=== PATIENT | male | born 1950 | race Caucasian/White ===

== ENCOUNTER 2017-05-03 19:55 | Inpatient (IN) ==
--- NOTE | 2017-05-03 20:02 | Emergency Department Note ---
Disposition Clinical Impression: Abdominal pain Qualifiers: Abdominal location: generalized Qualified Code(s): R10.84 - Generalized abdominal pain Disposition: Still a Patient Condition: Fair Referrals: NO,PCP [Non-Partnered Physician] - Forms: Work/School Release, ED Satisfaction Letter Time of Disposition: 22:22 Abdominal Pain HPI - General Chief Complaint: ED Abdominal Pain Stated Complaint: abd pain Time Seen by Provider: 05/03/17 19:57 Source: patient, EMS Mode of arrival: EMS Limitations: other (Psychiatric disorder) Nursing Notes Reviewed: Yes Vital Signs Reviewed: Yes - History of Present Illness HPI Narrative: 66-year-old male with history of schizophrenia at the inpatient [facility] at the [facility] with history of bowel obstruction as well, arrives to emergency emergency Department as a transfer for concern for possible small bowel obstruction. The patient was evaluated for abdominal pain earlier today with a abdominal x-ray which demonstrated dilated small bowel loops in the distal small bowel. The patient was transferred to [facility] for further evaluation and possible admission. The patient resting comfortably on the stretcher upon arrival. He is not tachycardic, afebrile, not hypotensive. The patient denies any complaints at this time other than a small amount of abdominal pain. The patient does have a history of psychiatric disorders and is minimally interactive but is able to answer some questions correctly. Onset (ago): unknown Location: diffuse Pain Severity: mild Pain Scale: 3 Quality: cramping Radiation: none Migration to: no migration Improves with: nothing Worsens with: nothing Context: history of similar episodes Treatments prior to arrival: none - Related Data Home Medications Medication Instructions Recorded Confirmed Acetaminophen [Tylenol] 650 mg PO BID PRN 01/11/16 05/11/16 CloZAPine [Fazaclo] 250 mg PO QAM 01/11/16 05/11/16 CloZAPine [Fazaclo] 300 mg PO HS 01/11/16 05/11/16 Docusate [Colace] 100 mg PO BID 01/11/16 05/11/16 Haloperidol Oral Conc [Haldol] 5 mg PO Q8HR PRN MDD tab & liquid 01/11/16 both active order Haloperidol [Haldol] 5 mg PO Q8HR PRN 01/11/16 05/11/16 LORazepam [Lorazepam] 1 mg IM Q8HR PRN 01/11/16 05/11/16 [place] Oral Soln [[place]] 8 meq PO HS 01/11/16 05/11/16 Magnesium Citrate [Citroma] 296 ml PO DAILY PRN 01/11/16 05/11/16 Ondansetron HCl [Zofran] 4 mg PO Q6HR PRN 01/11/16 05/11/16 Propranolol [Inderal] 10 mg PO BID 01/11/16 05/11/16 Oxybenzone/Padimate O [Sunscreen 1 appl TP AD PRN 05/11/16 05/11/16 Spf8 Lotion] Polyethylene Glycol 3350 [MiraLAX] 17 gm PO DAILY 05/11/16 05/11/16 Allergies Allergy/AdvReac Type Severity Reaction Status Date / Time chlorpromazine Allergy Rash Verified 11/06/15 15:30 [From Thorazine] aspirin [ASA] AdvReac Itching Verified 11/06/15 15:30 All systems ED: reviewed and negative except as stated. Constitutional: Denies: fever, chills, weakness, weight change Eyes: Denies: eye pain, eye discharge, vision change ENT ED: Denies: ear pain, throat pain, dental pain, hearing loss, epistaxis, congestion, dysphagia Cardiovascular: Denies: chest pain, palpitations, dyspnea on exertion, edema, syncope Respiratory: Denies: cough, dyspnea, wheezes, hemoptysis, stridor Gastrointestinal: Reports: abdominal pain, constipation. Denies: nausea, vomiting, diarrhea Genitourinary: Denies: urgency, dysuria, frequency, hematuria Musculoskeletal: Denies: back pain, neck pain, arthralgia, myalgia Integumentary: Denies: rash, abrasion, lesions Neurological: Denies: headache, weakness, numbness, paresthesias, confusion, abnormal gait, vertigo Psychiatric: Denies: anxiety, depression, suicidal thoughts, homicidal thoughts , auditory hallucinations, visual hallucinations Abdominal Pain PMH - Past Medical History Medical history: Reports: dementia, diabetes, GERD, hyperlipidemia, hypertension Male Surgical History: Reports: other Psychiatric history: Reports: anxiety, schizophrenia - Social History Smoking status: Never smoker Alcohol use: Reports: none Drug use: Reports: none Physical Exam - General Limitations: no limitations General appearance: alert, in no apparent distress - Head Head exam: atraumatic, normocephalic, normal inspection - Eye Eye exam: Present: normal appearance, PERRL, EOMI - ENT ENT exam: normal exam, normal oropharynx, mucous membranes moist - Neck Neck exam: Present: normal inspection, full ROM, trachea midline - Chest Chest inspection: Present: normal inspection, symmetric chest wall rise - Respiratory Respiratory exam: Present: normal lung sounds bilaterally - Cardiovascular Cardiovascular exam: Present: regular rate, normal rhythm, normal heart sounds - Abdominal Exam Abdominal exam: Present: soft, tenderness, distention, diminished bowel sounds. Absent: guarding, rebound, rigidity - Extremities Exam Extremities exam: Present: normal inspection, full ROM. Absent: tenderness, pedal edema - Neurological Exam Neurological exam: Present: alert, CN II-XII intact - Psychiatric Psychiatric exam: Present: flat affect Course Vital Signs Temperature 97.5 F L 05/03/17 19:58 Pulse Rate 82 05/03/17 19:58 Respiratory Rate 18 05/03/17 19:58 Blood Pressure 133/89 05/03/17 19:58 O2 Sat by Pulse Oximetry 95 05/03/17 19:58 Temperature 97.5 F L 05/03/17 19:58 Pulse Rate 82 05/03/17 19:58 Respiratory Rate 18 05/03/17 19:58 Blood Pressure 133/89 05/03/17 19:58 O2 Sat by Pulse Oximetry 95 05/03/17 19:58 Oxygen Delivery Oxygen Delivery Room Air Abdominal Pain - Lab Data Result diagrams: 05/03/17 20:17 05/03/17 20:17 Lab Results 05/03/17 05/03/17 05/03/17 Range/Units 20:17 20:17 20:17 WBC 7.8 (4.3-11.1) K/mcL RBC 5.08 (4.19-5.50) M/mcL Hgb 15.3 (12.9-16.9) g/dL Hct 45.2 (37.5-50.1) % MCV 89.0 (83.0-100.0) fL MCH 30.1 (28.0-33.3) pg MCHC 33.8 (31.6-35.5) g/dL RDW 15.3 H (11.5-14.5) % Plt Count 177 (140-400) K/mcL MPV 9.9 (9.4-12.4) fL Immature Gran % 0.3 (0-4) % Seg Neutrophils % 64.3 % Lymphocytes % 24.6 % Monocytes % 9.5 % Eosinophils % 0.9 % Basophils % 0.4 % Neutrophils # 5.0 (1.6-8.9) K/mcL Lymphocytes # 1.9 (0.6-4.6) K/mcL Monocytes # 0.7 (0.0-1.3) K/mcL Eosinophils # 0.1 (0.0-0.6) K/mcL Basophils # 0.0 (0.0-0.2) K/mcL PT 14.0 H (9.4-12.1) Seconds INR 1.3 Sodium 140 (136-145) mEq/L Potassium 3.7 (3.5-4.5) mEq/L Chloride 109 (98-109) mEq/L Carbon Dioxide 20 (19-29) mEq/L BUN 22 (8-26) mg/dL Creatinine 1.08 (0.72-1.25) mg/dL Est GFR ( Amer) > 60 (> 60) Est GFR (Non-Af Amer) > 60 (> 60) BUN/Creatinine Ratio 20 (6-26) Glucose 113 H (70-99) mg/dL Calculated Osmolality 294 (280-300) Calcium 8.9 (8.6-10.8) mg/dL Total Bilirubin 0.8 (0.2-1.2) mg/dL AST 11 (5-34) Units/L ALT 14 (0-55) Units/L Alkaline Phosphatase 81 (38-126) Units/L Serum Total Protein 6.8 (6.0-8.3) g/dL Albumin 3.4 L (3.5-5.0) g/dL Globulin 3.4 (2.4-3.5) g/dL Albumin/Globulin Ratio 1.0 L (1.1-2.2)
[2017-05-03 20:22] LABS: Basophils % 0.4 %; Eosinophils # 0.1 K/mcL (0.0-0.6); Eosinophils % 0.9 %; Hematocrit 45.2 % (37.5-50.1); Hemoglobin 15.3 g/dL (12.9-16.9); Immature Granulocytes % 0.3 % (0-4); Lymphocytes # 1.9 K/mcL (0.6-4.6); Lymphocytes % 24.6 %; Mean Corpuscular HGB Conc 33.8 g/dL (31.6-35.5); Mean Corpuscular Hemoglobin 30.1 pg (28.0-33.3); Mean Platelet Volume 9.9 fL (9.4-12.4); Monocytes # 0.7 K/mcL (0.0-1.3); Monocytes % 9.5 %; Platelet Count 177 K/mcL (140-400); Red Blood Count 5.08 M/mcL (4.19-5.50); Red Cell Distribution Width 15.3 % (11.5-14.5); Segmented Neutrophils % 64.3 %
[2017-05-03 20:35] LABS: Alanine Aminotransferase 14 Units/L (0-55); Albumin 3.4 g/dL (3.5-5.0); Alkaline Phosphatase 81 Units/L (38-126); Aspartate Amino Transferase 11 Units/L (5-34); BUN/Creatinine Ratio 20 (6-26); Bilirubin,Total 0.8 mg/dL (0.2-1.2); Blood Urea Nitrogen 22 mg/dL (8-26); Calcium 8.9 mg/dL (8.6-10.8); Carbon Dioxide 20 mEq/L (19-29); Chloride 109 mEq/L (98-109); Globulin 3.4 g/dL (2.4-3.5); Glucose 113 mg/dL (70-99); Osmolality,Calculated 294 (280-300); Potassium 3.7 mEq/L (3.5-4.5); Sodium 140 mEq/L (136-145); Total Protein 6.8 g/dL (6.0-8.3); eGFR For African Americans > 60 (> 60); eGFR For Non-African Americans > 60 (> 60)
--- NOTE | 2017-05-03 20:45 | Emergency Department Note ---
Disposition Clinical Impression: Abdominal pain, Small bowel obstruction Disposition: Admitted As Inpatient Condition: Fair General Adult HPI - General Chief complaint: ED Abdominal Pain Stated complaint: abd pain Time Seen by Provider: 05/03/17 19:57 Source: patient, EMS Mode of arrival: EMS Limitations: no limitations - History of Present Illness Pain Scale: 3 - Related Data Home Medications Medication Instructions Recorded Confirmed Acetaminophen [Tylenol] 650 mg PO BID PRN 01/11/16 05/04/17 CloZAPine [Fazaclo] 250 mg PO QAM 01/11/16 05/04/17 CloZAPine [Fazaclo] 300 mg PO HS 01/11/16 05/04/17 Haloperidol Oral Conc [Haldol] 5 mg PO Q8HR PRN MDD tab & liquid 01/11/16 both active order Haloperidol [Haldol] 5 mg PO Q8HR PRN 01/11/16 05/04/17 [place] Oral Soln [[place]] 8 meq PO HS 01/11/16 05/04/17 Magnesium Citrate [Citroma] 296 ml PO DAILY PRN 01/11/16 05/04/17 Propranolol [Inderal] 10 mg PO BID 01/11/16 05/04/17 Bisacodyl [Dulcolax] 10 mg RC DAILY PRN 05/04/17 05/04/17 Cetirizine HCl [Zyrtec] 10 mg PO DAILY PRN 05/04/17 05/04/17 Cholecalciferol (Vitamin D3) 2,000 unit PO DAILY 05/04/17 05/04/17 [Vitamin D3] GuaiFENesin/Dextromethorphan 10 ml PO Q8H PRN 05/04/17 05/04/17 [Robitussin/Dm] Magnesium Hydroxide [Milk of 30 ml PO DAILY PRN 05/04/17 05/04/17 Magnesia] Magnesium Hydroxide [Milk of 60 ml PO MOTHSA 05/04/17 05/04/17 Magnesia] Rectal Syringe [Enema Syringe] 1 each RC DAILY PRN 05/04/17 05/04/17 Sennosides/Docusate Sodium 1 each PO BID PRN 05/04/17 05/04/17 [Senna-S Tablet] Allergies Allergy/AdvReac Type Severity Reaction Status Date / Time chlorpromazine Allergy Rash Verified 05/04/17 07:34 [From Thorazine] aspirin [ASA] AdvReac Itching Verified 05/04/17 07:34 Constitutional: Denies: fever, chills, weakness, weight change Eyes: Denies: eye pain, eye discharge, vision change ENT ED: Denies: ear pain, throat pain, dental pain, hearing loss, epistaxis, congestion, dysphagia Cardiovascular: Denies: chest pain, palpitations, dyspnea on exertion, edema, syncope Respiratory: Denies: cough, dyspnea, wheezes, hemoptysis, stridor Gastrointestinal: Reports: abdominal pain, constipation. Denies: nausea, vomiting, diarrhea Genitourinary: Denies: urgency, dysuria, frequency, hematuria Musculoskeletal: Denies: back pain, neck pain, arthralgia, myalgia Integumentary: Denies: rash, abrasion, lesions Neurological: Denies: headache, weakness, numbness, paresthesias, confusion, abnormal gait, vertigo Psychiatric: Denies: anxiety, depression, suicidal thoughts, homicidal thoughts , auditory hallucinations, visual hallucinations Past Medical History - Past Medical History Medical history: Reports: dementia, diabetes, GERD, hyperlipidemia, hypertension Surgical history: Reports: other (Laparotomy) Psychiatric history: Reports: anxiety, schizophrenia - Social History Smoking Status: Never smoker Smokeless Tobacco Status: No Alcohol use: Reports: none Drug use: Reports: none Physical Exam - General Limitations: no limitations General appearance: alert, in no apparent distress Course - Reevaluation(s) Reevaluation #1: I saw the patient with the resident, Dr. Brennan. Patient was sent over from the [place] where he was a psych patient. He started having bilious vomiting so they did not abdominal series and feel that there is a bowel obstruction. Patient is a poor historian. Does not really communicate well. Certainly our concern for bowel obstruction or possible volvulus. We will go ahead and get a CT of the abdomen to assess the extent of this issue. Disposition will be based on diagnostic results and reevaluation. Time: 20:45 Vital Signs Temperature 97.5 F L 05/03/17 19:58 Pulse Rate 82 05/03/17 19:58 Respiratory Rate 18 05/03/17 19:58 Blood Pressure 133/89 05/03/17 19:58 O2 Sat by Pulse Oximetry 95 05/03/17 19:58 Temperature 98.1 F 05/09/17 11:41 Pulse Rate 81 05/09/17 11:41 Respiratory Rate 18 05/09/17 11:41 Blood Pressure 125/76 05/09/17 11:41 O2 Sat by Pulse Oximetry 94 05/09/17 11:41 Oxygen Delivery Oxygen Delivery Room Air Medical Decision Making - Lab Data Result diagrams: 05/05/17 08:47 05/07/17 09:07 Lab Results 05/03/17 05/03/17 05/03/17 Range/Units 20:17 20:17 20:17 WBC 7.8 (4.3-11.1) K/mcL RBC 5.08 (4.19-5.50) M/mcL Hgb 15.3 (12.9-16.9) g/dL Hct 45.2 (37.5-50.1) % MCV 89.0 (83.0-100.0) fL MCH 30.1 (28.0-33.3) pg MCHC 33.8 (31.6-35.5) g/dL RDW 15.3 H (11.5-14.5) % Plt Count 177 (140-400) K/mcL MPV 9.9 (9.4-12.4) fL Immature Gran % 0.3 (0-4) % Seg Neutrophils % 64.3 % Lymphocytes % 24.6 % Monocytes % 9.5 % Eosinophils % 0.9 % Basophils % 0.4 % Neutrophils # 5.0 (1.6-8.9) K/mcL Lymphocytes # 1.9 (0.6-4.6) K/mcL Monocytes # 0.7 (0.0-1.3) K/mcL Eosinophils # 0.1 (0.0-0.6) K/mcL Basophils # 0.0 (0.0-0.2) K/mcL PT 14.0 H (9.4-12.1) Seconds INR 1.3 Sodium 140 (136-145) mEq/L Potassium 3.7 (3.5-4.5) mEq/L Chloride 109 (98-109) mEq/L Carbon Dioxide 20 (19-29) mEq/L BUN 22 (8-26) mg/dL Creatinine 1.08 (0.72-1.25) mg/dL Est GFR ( Amer) > 60 (> 60) Est GFR (Non-Af Amer) > 60 (> 60) BUN/Creatinine Ratio 20 (6-26) Glucose 113 H (70-99) mg/dL Calculated Osmolality 294 (280-300) Calcium 8.9 (8.6-10.8) mg/dL Total Bilirubin 0.8 (0.2-1.2) mg/dL AST 11 (5-34) Units/L ALT 14 (0-55) Units/L Alkaline Phosphatase 81 (38-126) Units/L Serum Total Protein 6.8 (6.0-8.3) g/dL Albumin 3.4 L (3.5-5.0) g/dL Globulin 3.4 (2.4-3.5) g/dL Albumin/Globulin Ratio 1.0 L (1.1-2.2) Attestation Statement - Attestation Attestation: I , Dr. Sterling, examined this patient [id number] and my medical decision- making was reviewed with Dr. Brennan, Resident Physician. I agree with the documented findings, disposition and treatment plan as described except to the extent set forth below. Please see my progress notes for details.
[2017-05-03 20:55] LABS: INR 1.3
--- NOTE | 2017-05-03 22:45 | Emergency Department Note ---
Disposition Clinical Impression: Small bowel obstruction Abdominal pain Qualifiers: Abdominal location: generalized Qualified Code(s): R10.84 - Generalized abdominal pain Disposition: Admitted As Inpatient Condition: Fair Referrals: NO,PCP [Non-Partnered Physician] - Forms: ED Satisfaction Letter, Work/School Release Time of Disposition: 23:25 General Adult HPI - General Chief complaint: ED Abdominal Pain Stated complaint: abd pain Time Seen by Provider: 05/03/17 19:57 Source: patient, EMS Mode of arrival: EMS Limitations: no limitations - History of Present Illness Pain Scale: 3 - Related Data Home Medications Medication Instructions Recorded Confirmed Acetaminophen [Tylenol] 650 mg PO BID PRN 01/11/16 05/11/16 CloZAPine [Fazaclo] 250 mg PO QAM 01/11/16 05/11/16 CloZAPine [Fazaclo] 300 mg PO HS 01/11/16 05/11/16 Docusate [Colace] 100 mg PO BID 01/11/16 05/11/16 Haloperidol Oral Conc [Haldol] 5 mg PO Q8HR PRN MDD tab & liquid 01/11/16 both active order Haloperidol [Haldol] 5 mg PO Q8HR PRN 01/11/16 05/11/16 LORazepam [Lorazepam] 1 mg IM Q8HR PRN 01/11/16 05/11/16 [place] Oral Soln [[place]] 8 meq PO HS 01/11/16 05/11/16 Magnesium Citrate [Citroma] 296 ml PO DAILY PRN 01/11/16 05/11/16 Ondansetron HCl [Zofran] 4 mg PO Q6HR PRN 01/11/16 05/11/16 Propranolol [Inderal] 10 mg PO BID 01/11/16 05/11/16 Oxybenzone/Padimate O [Sunscreen 1 appl TP AD PRN 05/11/16 05/11/16 Spf8 Lotion] Polyethylene Glycol 3350 [MiraLAX] 17 gm PO DAILY 05/11/16 05/11/16 Allergies Allergy/AdvReac Type Severity Reaction Status Date / Time chlorpromazine Allergy Rash Verified 11/06/15 15:30 [From Thorazine] aspirin [ASA] AdvReac Itching Verified 11/06/15 15:30 Constitutional: Denies: fever, chills, weakness, weight change Eyes: Denies: eye pain, eye discharge, vision change ENT ED: Denies: ear pain, throat pain, dental pain, hearing loss, epistaxis, congestion, dysphagia Cardiovascular: Denies: chest pain, palpitations, dyspnea on exertion, edema, syncope Respiratory: Denies: cough, dyspnea, wheezes, hemoptysis, stridor Gastrointestinal: Reports: abdominal pain, constipation. Denies: nausea, vomiting, diarrhea Genitourinary: Denies: urgency, dysuria, frequency, hematuria Musculoskeletal: Denies: back pain, neck pain, arthralgia, myalgia Integumentary: Denies: rash, abrasion, lesions Neurological: Denies: headache, weakness, numbness, paresthesias, confusion, abnormal gait, vertigo Psychiatric: Denies: anxiety, depression, suicidal thoughts, homicidal thoughts , auditory hallucinations, visual hallucinations Past Medical History - Past Medical History Medical history: Reports: dementia, diabetes, GERD, hyperlipidemia, hypertension Surgical history: Reports: other (Laparotomy) Psychiatric history: Reports: anxiety, schizophrenia - Social History Smoking Status: Never smoker Smokeless Tobacco Status: No Alcohol use: Reports: none Drug use: Reports: none Physical Exam - General Limitations: no limitations General appearance: alert, in no apparent distress Course Vital Signs Temperature 97.5 F L 05/03/17 19:58 Pulse Rate 82 05/03/17 19:58 Respiratory Rate 18 05/03/17 19:58 Blood Pressure 133/89 05/03/17 19:58 O2 Sat by Pulse Oximetry 95 05/03/17 19:58 Temperature 97.5 F L 05/03/17 19:58 Pulse Rate 82 05/03/17 22:27 Respiratory Rate 16 05/03/17 22:27 Blood Pressure 143/91 05/03/17 22:27 O2 Sat by Pulse Oximetry 100 05/03/17 22:27 Oxygen Delivery Oxygen Delivery Room Air Medical Decision Making - Lab Data Lab results reviewed: Yes I reviewed the patient's lab results. Result diagrams: 05/03/17 20:17 05/03/17 20:17 Lab Results 05/03/17 05/03/17 05/03/17 Range/Units 20:17 20:17 20:17 WBC 7.8 (4.3-11.1) K/mcL RBC 5.08 (4.19-5.50) M/mcL Hgb 15.3 (12.9-16.9) g/dL Hct 45.2 (37.5-50.1) % MCV 89.0 (83.0-100.0) fL MCH 30.1 (28.0-33.3) pg MCHC 33.8 (31.6-35.5) g/dL RDW 15.3 H (11.5-14.5) % Plt Count 177 (140-400) K/mcL MPV 9.9 (9.4-12.4) fL Immature Gran % 0.3 (0-4) % Seg Neutrophils % 64.3 % Lymphocytes % 24.6 % Monocytes % 9.5 % Eosinophils % 0.9 % Basophils % 0.4 % Neutrophils # 5.0 (1.6-8.9) K/mcL Lymphocytes # 1.9 (0.6-4.6) K/mcL Monocytes # 0.7 (0.0-1.3) K/mcL Eosinophils # 0.1 (0.0-0.6) K/mcL Basophils # 0.0 (0.0-0.2) K/mcL PT 14.0 H (9.4-12.1) Seconds INR 1.3 Sodium 140 (136-145) mEq/L Potassium 3.7 (3.5-4.5) mEq/L Chloride 109 (98-109) mEq/L Carbon Dioxide 20 (19-29) mEq/L BUN 22 (8-26) mg/dL Creatinine 1.08 (0.72-1.25) mg/dL Est GFR ( Amer) > 60 (> 60) Est GFR (Non-Af Amer) > 60 (> 60) BUN/Creatinine Ratio 20 (6-26) Glucose 113 H (70-99) mg/dL Calculated Osmolality 294 (280-300) Calcium 8.9 (8.6-10.8) mg/dL Total Bilirubin 0.8 (0.2-1.2) mg/dL AST 11 (5-34) Units/L ALT 14 (0-55) Units/L Alkaline Phosphatase 81 (38-126) Units/L Serum Total Protein 6.8 (6.0-8.3) g/dL Albumin 3.4 L (3.5-5.0) g/dL Globulin 3.4 (2.4-3.5) g/dL Albumin/Globulin Ratio 1.0 L (1.1-2.2) - Radiology Data Radiology results reviewed: Yes I reviewed the patient's radiology results. Attestation Statement - Attestation Attestation: Care of patient assumed from Dr. Sterling at 22:[address] abdomen and pelvis with oral contrast. It is reported that the patient has a history of small bowel obstruction in the past 23:25: 80 show small bowel obstruction. I will arrange admission
[2017-05-04] MEDS ORDERED: Ondansetron 4 MG/2 ML VIAL IVP PRN (00:54)
[2017-05-04] MEDS ORDERED: Naloxone 0.4 MG/ML INJ IVP PRN (00:54)
--- NOTE | 2017-05-04 01:11 | Internal Med History&Physical ---
Date of Encounter: 05/04/17 Time of Encounter: 01:09 Assessment and Plan (1) Small bowel obstruction Current visit: Yes Status: Acute Patient had abdominal pain and last bowel movement noted on 05/02/2017. Acute abdominal series at the [facility] revealed findings consistent with an obstruction. CT scan of the abdomen/pelvis at [facility] revealed distal small bowel obstruction in the right lower quadrant transition point. Patient be admitted to inpatient status. Expected to be in the hospital for at least 2 midnights. Expected discharge disposition is back to the [facility] once his acute medical problem is resolved. Moderate to high risk due to small bowel obstruction that may request surgical intervention. Nothing by mouth. Surgical consultation. Intravenous proton pump inhibitor. Monitor for bowel movements and further bowel sounds. (2) DM type 2 (diabetes mellitus, type 2) Current visit: Yes Status: Chronic Patient has diabetes. Place him on sliding scale insulin and every 6 however blood sugar checks due to his nothing by mouth status. Hold by mouth medications for now. 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 If his mental status changes, will consider psychiatric consult at [facility]. Qualifiers: Schizophrenia type: unspecified Qualified Code(s): F20.9 - Schizophrenia, unspecified Internal Medicine - H&P: HPI Chief complaint: Abdominal pain Admitted From: Hospital to Hospital Transfer Plans for Post Hospital Care: Transfer Psych Facility History of present illness: Mr. Wilder is a 66 year old male transferred from [facility] to emergency department today at [facility] for further evaluation of his abdominal pain and small bowel obstruction. Patient is a very poor historian and answers all questions with "no". Hence, most of the information is obtained by review of medical records and discussion with ER physician. According to the records, the patient's last bowel movement was on 05/02/2017. Patient was rapidly complaining of abdominal pain at the [facility] where he was located. Hence, an acute abdominal series was performed due to his history of small bowel obstruction the past. This revealed findings consistent with possible small bowel obstruction and hence a CT scan and surgical consultation were recommended. Hence, the patient was transferred to emergency room at [facility]. In the emergency room, the patient was complaining of abdominal pain and had a CT scan performed. Currently, the patient is not able to provide any history and denies having any abdominal pain, nausea, vomiting. Past Med Surg Social Fam HX - Past Medical History Source: old records reviewed Medical history: diabetes, GERD, hyperlipidemia, hypertension Psychiatric history: anxiety, schizophrenia - Past Surgical History Surgical History: other (Laparotomy) - Social History Smoking Status: Never smoker Smokeless Tobacco Status: No Alcohol use: none Drug use: none Activity Level: Independent ambulation - Additional Family History Additional family history: Unable to obtain due to his psychiatric condition Internal Medicine - H&P: Meds Acetaminophen [Tylenol] 650 mg PO BID PRN 01/11/16 [History] CloZAPine [Fazaclo] 250 mg PO QAM 01/11/16 [History] CloZAPine [Fazaclo] 300 mg PO HS 01/11/16 [History] Docusate [Colace] 100 mg PO BID 01/11/16 [History] Haloperidol Oral Conc [Haldol] 5 mg PO Q8HR PRN MDD tab & liquid both active order 01/11/16 [History] Haloperidol [Haldol] 5 mg PO Q8HR PRN 01/11/16 [History] LORazepam [Lorazepam] 1 mg IM Q8HR PRN 01/11/16 [History] Harvest Oral Soln [Harvest] 8 meq PO HS 01/11/16 [History] Magnesium Citrate [Citroma] 296 ml PO DAILY PRN 01/11/16 [History] Ondansetron HCl [Zofran] 4 mg PO Q6HR PRN 01/11/16 [History] Propranolol [Inderal] 10 mg PO BID 01/11/16 [History] Oxybenzone/Padimate O [Sunscreen Spf8 Lotion] 1 appl TP AD PRN 05/11/16 [History ] Polyethylene Glycol 3350 [MiraLAX] 17 gm PO DAILY 05/11/16 [History] Allergies chlorpromazine [From Thorazine] Allergy (Verified 11/06/15 15:30) Rash aspirin [ASA] Adverse Reaction (Verified 11/06/15 15:30) Itching ROS unobtainable: other (due to psychiatric status) All Systems PM: A 10-system review of systems was performed and is negative for pertinent findings except as documented above in the HPI. - Constitutional Vitals: Temp Pulse Resp BP Pulse Ox 98.1 F 89 16 141/85 96 05/04/17 00:43 05/04/17 00:43 05/04/17 00:43 05/04/17 00:43 05/04/17 00:43 Exam: Gen.: Lying in bed. No acute distress. Eyes: Pupils equal, round and reactive to light. Extraocular muscles intact. ENT: Moist mucous membranes. No oropharyngeal erythema or discharge. Chest: Clear to auscultation bilaterally. No adventitious sounds present. CVS: First and second heart sounds present. No murmurs, rubs or gallops. Abdomen: Soft, tenderness to palpation in the umbilical region and right lower quadrant without rebound tenderness, guarding or rigidity; nondistended. Feeble Bowel sounds present. No hepatosplenomegaly. Skin: No decubitus ulcers appreciated. 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 Psychiatric: Flat affect. Answers all questions with "no" Lymphatic system: No lymphadenopathy appreciated Internal Med - H&P Results - Labs CBC & Chem 7: 05/03/17 20:17 05/03/17 20:17 - Diagnostic Studies CT scan - abdomen Additional comments: Distal small bowel obstruction with a transition point noted within the right lower quadrant likely secondary to intra-abdominal adhesions according to read by the radiologist. No evidence of pneumatosis, perforation or free air is seen.
[2017-05-04] MEDS ORDERED: Dextrose Gel 15 GM PO PRN ×2 (01:20)
[2017-05-04] MEDS ORDERED: D5% in Water 1,000 ML IVC PRN (01:20)
[2017-05-04] MEDS ORDERED: *HR* Dextrose 50 % in Water (Syg) 50 ML SYRINGE IVP PRN (01:20)
[2017-05-04] MEDS: *HR* Heparin 5,000 UNIT/ML VIAL SQ SCH ×3 (06:24→20:51)
[2017-05-04] MEDS: Pantoprazole 40 MG VIAL IVP SCH (06:31)
[2017-05-04] MEDS: Insulin LISPRO 300 UNITS/3 ML VIAL SQ SCH ×3 (07:41→17:58)
[2017-05-04] MEDS: 0.9 % Sodium Chloride 1,000 ML IVC SCH (14:18)
[2017-05-04] MEDS ORDERED: Insulin LISPRO 300 UNITS/3 ML VIAL SQ SCH (21:00)
[2017-05-05] MEDS: 0.9 % Sodium Chloride 1,000 ML IVC SCH ×2 (01:39)
[2017-05-05] MEDS: *HR* Heparin 5,000 UNIT/ML VIAL SQ SCH ×3 (05:30→21:06)
[2017-05-05] MEDS: Pantoprazole 40 MG VIAL IVP SCH (05:33)
[2017-05-05] MEDS: Insulin LISPRO 300 UNITS/3 ML VIAL SQ SCH ×3 (07:55→17:15)
[2017-05-05 08:53] LABS: Basophils % 0.3 %; Eosinophils % 0.3 %; Hematocrit 40.6 % (37.5-50.1); Immature Granulocytes % 0.5 % (0-4); Immature Platelets 2.8 % (1.1-6.1); Lymphocytes # 2.2 K/mcL (0.6-4.6); Lymphocytes % 37.5 %; Mean Corpuscular HGB Conc 33.7 g/dL (31.6-35.5); Mean Corpuscular Hemoglobin 30.3 pg (28.0-33.3); Mean Corpuscular Volume 89.8 fL (83.0-100.0); Mean Platelet Volume 9.4 fL (9.4-12.4); Monocytes # 0.6 K/mcL (0.0-1.3); Monocytes % 9.5 %; Platelet Count 154 K/mcL (140-400); Red Blood Count 4.52 M/mcL (4.19-5.50); Red Cell Distribution Width 15.3 % (11.5-14.5); Segmented Neutrophils % 51.9 %
[2017-05-05 08:55] LABS: Hemoglobin 13.7 g/dL (12.9-16.9)
[2017-05-05 09:04] LABS: BUN/Creatinine Ratio 11 (6-26); Calcium 8.3 mg/dL (8.6-10.8); Carbon Dioxide 24 mEq/L (19-29); Chloride 111 mEq/L (98-109); Glucose 87 mg/dL (70-99); Osmolality,Calculated 290 (280-300); Potassium 3.3 mEq/L (3.5-4.5); Sodium 141 mEq/L (136-145); eGFR For African Americans > 60 (> 60); eGFR For Non-African Americans > 60 (> 60)
[2017-05-05 09:07] LABS: Blood Urea Nitrogen 10 mg/dL (8-26)
--- NOTE | 2017-05-05 09:35 | Internal Med Progress Note ---
Date of Encounter: 05/05/17 Time of Encounter: 09:33 - Assessment and plan (1) Small bowel obstruction Current Visit: No Status: Resolved Assessment and plan: Acute abdominal series at the [facility] revealed findings consistent with an obstruction. CT scan of the abdomen/pelvis at [facility] revealed distal small bowel obstruction in the right lower quadrant transition point. clinically better today with conservative management, toelrating liquid diet, denies abdominal pain, nausea or vomiting. good bowel sounds, abd soft and non tender on exam will advance diet to soft for lunch possible dc back to [place]. (2) Schizophrenia Current Visit: Yes Status: Chronic Assessment and plan: Patient to transfer back to the [place] psych facility , no acute change in his mental status Qualifiers: Schizophrenia type: unspecified Qualified Code(s): F20.9 - Schizophrenia, unspecified (3) DVT prophylaxis Current Visit: No Status: Acute (4) DM type 2 (diabetes mellitus, type 2) Current Visit: Yes Status: Chronic Assessment and plan: Patient has diabetes. Place him on sliding scale insulin and every 6 however blood sugar checks due to his nothing by mouth status. Hold by mouth medications for now. Qualifiers: Diabetes mellitus complication status: without complication Diabetes mellitus nursing home insulin use: unspecified nursing home insulin use status Qualified Code(s): E11.9 - Type 2 diabetes mellitus without complications - Subjective Interval history: neshanet seen at the bedside today, denies any abdominal pain, nausea or vomiting, tolerating liquid diet well. admitted for SBO started on conservative management. - Constitutional Vitals: Temp Pulse Resp BP Pulse Ox 98.5 F 74 16 123/83 96 05/05/17 08:00 05/05/17 08:00 05/05/17 08:00 05/05/17 08:00 05/05/17 08:00 General appearance: Present: A&O X 2, no acute distress Exam: alert and awake neck- supple chest- b/l clear ,no added sounds CVS-s1 and s2, no mr//g abd-soft, non tender, bs are present ext- no edema Internal Medicine: Result - Labs CBC & Chem 7: 05/05/17 08:47 05/05/17 08:47 Labs: Short CBC 05/05/17 Range/Units 08:47 WBC 5.8 (4.3-11.1) K/mcL Hgb 13.7 D (12.9-16.9) g/dL Hct 40.6 (37.5-50.1) % Plt Count 154 (140-400) K/mcL Neutrophils # 3.0 (1.6-8.9) K/mcL BMP 05/05/17 08:47 Sodium 141 Potassium 3.3 L Chloride 111 H Carbon Dioxide 24 BUN 10 D Creatinine 0.87 Glucose 87 Calcium 8.3 L - ABG Interpretation ABG results: PT/INR, D-dimer PT 14.0 Seconds (9.4-12.1) H 05/03/17 20:17 Consult Discharge Plan - Plan Referrals: [facility] [Outside]
[2017-05-06] MEDS: *HR* Heparin 5,000 UNIT/ML VIAL SQ SCH ×3 (05:27→21:27)
[2017-05-06] MEDS: Pantoprazole 40 MG VIAL IVP SCH (05:28)
--- NOTE | 2017-05-06 10:18 | Discharge Summary ---
Date of Encounter: 05/06/17 Time of Encounter: 10:10 - Discharge Diagnosis (1) Small bowel obstruction Priority: Primary Status: Resolved (2) Schizophrenia Priority: Secondary Status: Chronic Qualifiers: Schizophrenia type: unspecified Qualified Code(s): F20.9 - Schizophrenia, unspecified (3) DVT prophylaxis Priority: Secondary Status: Acute (4) DM type 2 (diabetes mellitus, type 2) Priority: Secondary Status: Chronic Qualifiers: Diabetes mellitus complication status: without complication Diabetes mellitus terminal system operator insulin use: unspecified terminal system operator insulin use status Qualified Code(s): E11.9 - Type 2 diabetes mellitus without complications - Discharge Medications Home Medications: Acetaminophen [Tylenol] 650 mg PO BID PRN 01/11/16 [History] CloZAPine [Fazaclo] 250 mg PO QAM 01/11/16 [History] CloZAPine [Fazaclo] 300 mg PO HS 01/11/16 [History] Haloperidol Oral Conc [Haldol] 5 mg PO Q8HR PRN MDD tab & liquid both active order 01/11/16 [History] Haloperidol [Haldol] 5 mg PO Q8HR PRN 01/11/16 [History] Kremmling Oral Soln [Kremmling] 8 meq PO HS 01/11/16 [History] Magnesium Citrate [Citroma] 296 ml PO DAILY PRN 01/11/16 [History] Propranolol [Inderal] 10 mg PO BID 01/11/16 [History] Bisacodyl [Dulcolax] 10 mg RC DAILY PRN 05/04/17 [History] Cetirizine HCl [Zyrtec] 10 mg PO DAILY PRN 05/04/17 [History] Cholecalciferol (Vitamin D3) [Vitamin D3] 2,000 unit PO DAILY 05/04/17 [History] GuaiFENesin/Dextromethorphan [Robitussin/Dm] 10 ml PO Q8H PRN 05/04/17 [History] Magnesium Hydroxide [Milk of Magnesia] 30 ml PO DAILY PRN 05/04/17 [History] Magnesium Hydroxide [Milk of Magnesia] 60 ml PO MOTHSA 05/04/17 [History] Rectal Syringe [Enema Syringe] 1 each RC DAILY PRN 05/04/17 [History] Sennosides/Docusate Sodium [Senna-S Tablet] 1 each PO BID PRN 05/04/17 [History] Allergies/Adverse Reactions: Allergies chlorpromazine [From Thorazine] Allergy (Verified 05/04/17 07:34) Rash aspirin [ASA] Adverse Reaction (Verified 05/04/17 07:34) Itching Date of admission: 05/03/17 23:36 Primary care physician: PCP [place] Consults: 05/04/17 01:21 Consult to Surgery [CONS] Routine Consulting Provider: Juan J Szymanski Reason for Consult: SBO Call Completed: Yes 05/04/17 01:47 Consult to Swine Extension Field Specialist [CONS] Routine Reason for SW Consult: Disabled Discharging clinician: Mely Pablo Anticipated date of discharge: 05/06/17 - Patient Status Disposition: Transfer Psychiatric Hosp Condition: Fair Functional capacity at discharge: independent ambulation Overall status at discharge: patient is back to baseline - Discharge Instructions Follow Up With: [facility] [Outside] - Diet and Activity Activity: as per physical therapy Diet: other (soft diet for 1 week) Interval History: Mr. Wilder is a 66 year old male transferred from [facility] to emergency department today at [facility] for further evaluation of his abdominal pain and small bowel obstruction. Patient is a very poor historian . Patient was rapidly complaining of abdominal pain at the [facility] where he was located. Hence, an acute abdominal series was performed due to his history of small bowel obstruction the past. This revealed findings consistent with possible small bowel obstruction and hence a CT scan and surgical consultation were recommended. Hence, the patient was transferred to emergency room at [facility]. CT scan of the abdomen/pelvis at [facility] revealed distal small bowel obstruction in the right lower quadrant transition point.patient was admitted for further management. he was treated conservatively with IVF and bowel rest, he did better and is currently tolerating soft diet with no abdominal pain, nausea or vomiting. HE is paassing gas, abdomen feels soft and has bowel sounds. Clinically there is no signs of bowel obstruction. At this time, he is stable for dc back to [place]. Hospital course: Mr. Wilder is a 66 year old male - Time Spent with Patient Total time spent providing and/or coordinating discharge services: - Constitutional Vitals: Temp Pulse Resp BP Pulse Ox 98.4 F 78 18 150/88 97 05/06/17 07:39 05/06/17 07:39 05/06/17 07:39 05/06/17 07:39 05/06/17 07:39 General appearance: Present: A&O X 2, no acute distress Exam: alert and awake neck- supple chest- b/l clear ,no added sounds CVS-s1 and s2, no mr//g abd-soft, non tender, bs are present ext- no edema
[2017-05-06] MEDS: Insulin LISPRO 300 UNITS/3 ML VIAL SQ SCH ×3 (15:13→21:29)
[2017-05-06] MEDS: Lithium Oral Soln 300 MG/5 ML UDC PO SCH (21:26)
[2017-05-06] MEDS: Sennosides/Docusate Sodium TABLET PO SCH (21:26)
[2017-05-07] MEDS: Haloperidol Lactate 5 MG/ML VIAL IVP PRN (01:02)
[2017-05-07] MEDS: *HR* Heparin 5,000 UNIT/ML VIAL SQ SCH ×3 (05:27→21:24)
[2017-05-07] MEDS: Sennosides/Docusate Sodium TABLET PO SCH ×2 (07:24→21:24)
[2017-05-07] MEDS: Insulin LISPRO 300 UNITS/3 ML VIAL SQ SCH ×4 (07:41→21:18)
[2017-05-07 09:59] LABS: BUN/Creatinine Ratio 13 (6-26); Blood Urea Nitrogen 10 mg/dL (8-26); Calcium 9.2 mg/dL (8.6-10.8); Carbon Dioxide 19 mEq/L (19-29); Chloride 108 mEq/L (98-109); Glucose 90 mg/dL (70-99); Osmolality,Calculated 283 (280-300); Potassium 3.7 mEq/L (3.5-4.5); Sodium 137 mEq/L (136-145); eGFR For African Americans > 60 (> 60); eGFR For Non-African Americans > 60 (> 60)
--- NOTE | 2017-05-07 11:31 | Internal Med Progress Note ---
Date of Encounter: 05/07/17 Time of Encounter: 11:28 - Assessment and plan (1) Small bowel obstruction Current Visit: No Status: Resolved Assessment and plan: Acute abdominal series at the [facility] revealed findings consistent with an obstruction. CT scan of the abdomen/pelvis at [facility] revealed distal small bowel obstruction in the right lower quadrant transition point. clinically better today with conservative management, toelrating liquid diet, denies abdominal pain, nausea or vomiting. good bowel sounds, abd soft and non tender on exam will advance diet to soft for lunch awaiting transfer back to [place] (2) Schizophrenia Current Visit: Yes Status: Chronic Assessment and plan: Patient to transfer back to the [facility] psych facility , no acute change in his mental status Qualifiers: Schizophrenia type: unspecified Qualified Code(s): F20.9 - Schizophrenia, unspecified (3) DVT prophylaxis Current Visit: No Status: Acute (4) DM type 2 (diabetes mellitus, type 2) Current Visit: Yes Status: Chronic Assessment and plan: Patient has diabetes. Place him on sliding scale insulin TID WM and HS Qualifiers: Diabetes mellitus complication status: without complication Diabetes mellitus termite exterminator helper insulin use: unspecified termite exterminator helper insulin use status Qualified Code(s): E11.9 - Type 2 diabetes mellitus without complications - Time Spent With Patient 25 - 35 minutes - Subjective Interval history: patinet seen at the bedside today, denies any abdominal pain, nausea or vomiting, tolerating soft diet well. had a large bowel movement last night. no signs of bowel obstruction at this time, clinically stable awaiting transfer to [facility]. - Constitutional Vitals: Temp Pulse Resp BP Pulse Ox 97.4 F L 66 18 166/73 97 05/07/17 07:35 05/07/17 07:35 05/07/17 07:35 05/07/17 07:35 05/07/17 07:35 General appearance: Present: A&O X 2, no acute distress Exam: alert and awake neck- supple chest- b/l clear ,no added sounds CVS-s1 and s2, no mr//g abd-soft, non tender, bs are present ext- no edema Internal Medicine: Result - Labs CBC & Chem 7: 05/05/17 08:47 05/07/17 09:07 Labs: BMP 05/07/17 09:07 Sodium 137 Potassium 3.7 Chloride 108 Carbon Dioxide 19 BUN 10 Creatinine 0.78 Glucose 90 Calcium 9.2 - ABG Interpretation ABG results: PT/INR, D-dimer PT 14.0 Seconds (9.4-12.1) H 05/03/17 20:17 Consult Discharge Plan - Plan Referrals: [facility] [Outside]
[2017-05-07] MEDS: Lithium Oral Soln 300 MG/5 ML UDC PO SCH (21:24)
[2017-05-08] MEDS: *HR* Heparin 5,000 UNIT/ML VIAL SQ SCH ×3 (06:40→20:45)
[2017-05-08] MEDS: Insulin LISPRO 300 UNITS/3 ML VIAL SQ SCH ×4 (07:44→20:45)
[2017-05-08] MEDS: Sennosides/Docusate Sodium TABLET PO SCH ×2 (08:53→20:45)
--- NOTE | 2017-05-08 10:36 | Internal Med Progress Note ---
Date of Encounter: 05/08/17 Time of Encounter: 10:34 - Assessment and plan (1) Small bowel obstruction Current Visit: No Status: Resolved Assessment and plan: Acute abdominal series at the [facility] revealed findings consistent with an obstruction. CT scan of the abdomen/pelvis at [facility] revealed distal small bowel obstruction in the right lower quadrant transition point. clinically better with conservative management, toelrating soft diet, denies abdominal pain, nausea or vomiting. good bowel sounds, abd soft and non tender on exam, having bowel movements awaiting transfer back to [place] (2) Schizophrenia Current Visit: Yes Status: Chronic Assessment and plan: Patient to transfer back to the [facility] facility , no acute change in his mental status Qualifiers: Schizophrenia type: unspecified Qualified Code(s): F20.9 - Schizophrenia, unspecified (3) DVT prophylaxis Current Visit: No Status: Acute (4) DM type 2 (diabetes mellitus, type 2) Current Visit: Yes Status: Chronic Assessment and plan: Patient has diabetes. Place him on sliding scale insulin TID WM and HS Qualifiers: Diabetes mellitus complication status: without complication Diabetes mellitus marine oil terminal superintendent insulin use: unspecified marine oil terminal superintendent insulin use status Qualified Code(s): E11.9 - Type 2 diabetes mellitus without complications - Subjective Interval history: neshanet seen at the bedside today, denies any abdominal pain, nausea or vomiting, tolerating soft diet well. having regular bowel movement no signs of bowel obstruction at this time, clinically stable awaiting transfer to [facility]. - Constitutional Vitals: Temp Pulse Resp BP Pulse Ox 98.3 F 70 16 143/90 93 05/08/17 07:43 05/08/17 07:43 05/08/17 07:43 05/08/17 07:43 05/08/17 07:43 General appearance: Present: A&O X 2, no acute distress Exam: alert and awake neck- supple chest- b/l clear ,no added sounds CVS-s1 and s2, no mr//g abd-soft, non tender, bs are present ext- no edema Internal Medicine: Result - Labs CBC & Chem 7: 05/05/17 08:47 05/07/17 09:07 - ABG Interpretation ABG results: PT/INR, D-dimer PT 14.0 Seconds (9.4-12.1) H 05/03/17 20:17 Consult Discharge Plan - Plan Referrals: [facility] [Outside]
[2017-05-08] MEDS: Haloperidol Lactate 5 MG/ML VIAL IVP PRN (18:44)
[2017-05-08] MEDS: Lithium Oral Soln 300 MG/5 ML UDC PO SCH (20:45)
[2017-05-09] MEDS: Haloperidol Lactate 5 MG/ML VIAL IVP PRN (03:27)
[2017-05-09] MEDS: *HR* Heparin 5,000 UNIT/ML VIAL SQ SCH (06:38)
[2017-05-09] MEDS: Sennosides/Docusate Sodium TABLET PO SCH (08:10)
[2017-05-09] MEDS: Insulin LISPRO 300 UNITS/3 ML VIAL SQ SCH ×2 (08:16→13:42)
--- NOTE | 2017-05-09 11:42 | Internal Med Progress Note ---
Date of Encounter: 05/09/17 Time of Encounter: 11:41 - Assessment and plan (1) Small bowel obstruction Current Visit: No Status: Resolved Assessment and plan: Acute abdominal series at the [place] [facility] revealed findings consistent with an obstruction. CT scan of the abdomen/pelvis at [facility] revealed distal small bowel obstruction in the right lower quadrant transition point. clinically better with conservative management, tolerating soft diet, denies abdominal pain, nausea or vomiting. good bowel sounds, abd soft and non tender on exam, having bowel movements awaiting transfer back to [place] (2) Schizophrenia Current Visit: Yes Status: Chronic Assessment and plan: Patient to transfer back to the [facility] facility , no acute change in his mental status Qualifiers: Schizophrenia type: unspecified Qualified Code(s): F20.9 - Schizophrenia, unspecified (3) DVT prophylaxis Current Visit: No Status: Acute (4) DM type 2 (diabetes mellitus, type 2) Current Visit: Yes Status: Chronic Assessment and plan: Patient has diabetes. Place him on sliding scale insulin TID WM and HS Qualifiers: Diabetes mellitus complication status: without complication Diabetes mellitus buttermaker continuous churn insulin use: unspecified buttermaker continuous churn insulin use status Qualified Code(s): E11.9 - Type 2 diabetes mellitus without complications - Subjective Interval history: patinet seen at the bedside today, denies any abdominal pain, nausea or vomiting, tolerating soft diet well. having regular bowel movement no signs of bowel obstruction at this time, clinically stable awaiting transfer to [facility]. - Constitutional Vitals: Temp Pulse Resp BP Pulse Ox 97.9 F 76 16 128/83 95 05/09/17 07:32 05/09/17 07:32 05/09/17 07:32 05/09/17 07:32 05/09/17 07:32 General appearance: Present: A&O X 2, no acute distress Exam: alert and awake neck- supple chest- b/l clear ,no added sounds CVS-s1 and s2, no mr//g abd-soft, non tender, bs are present ext- no edema Internal Medicine: Result - Labs CBC & Chem 7: 05/05/17 08:47 05/07/17 09:07 - ABG Interpretation ABG results: PT/INR, D-dimer PT 14.0 Seconds (9.4-12.1) H 05/03/17 20:17 Consult Discharge Plan - Plan Referrals: [facility] [Outside]
[2017-05-09 11:43] VITALS: BP 125/76
== END 2017-05-09 15:46 | DRG 390 ==
LOC: EMEROO 19:55 → 3ANU 23:36
PROVIDERS: ADMIT Internal Medicine Sleep Medicine; ATTEND Internal Medicine Endocrinology, Diabetes & Metabolism

== ENCOUNTER 2019-08-25 11:42 | Inpatient (IN) ==
--- NOTE | 2019-08-25 11:56 | Emergency Department Note ---
Disposition Clinical Impression: Small bowel obstruction Disposition: Admitted As Inpatient Condition: Fair Forms: ED Satisfaction Letter, Work/School Release Time of Disposition: 14:27 Abdominal Pain HPI - General Chief Complaint: ED General Medical Stated Complaint: possible bowl obstruction Time Seen by Provider: 08/25/19 11:47 Source: EMS Mode of arrival: ambulatory Limitations: no limitations Nursing Notes Reviewed: Yes Vital Signs Reviewed: Yes - History of Present Illness HPI Narrative: 68-year-old male presents emergency Department from the [facility] for possible rule out of bowel obstruction. Patient is a schizophrenic and is essentially nonverbal. He provides no history whatsoever. History from EMS is that supposedly he may have had a small bowel obstruction he was sent here for evaluation and treatment. Evidently patient had an x-ray at the [facility] with no other labs and I am aware of that was potentially possible for a small bowel obstruction. Therefore he was sent here. Patient is DNR CC. No history was obtained from patient he did not have complaints of pain. Pt Subjective Complaint: abdominal pain Onset (ago): unknown Pain Scale: 0 Treatments prior to arrival: none - Related Data Home Medications Medication Instructions Recorded Confirmed Acetaminophen [Tylenol] 650 mg PO BID PRN 01/11/16 05/04/17 CloZAPine [Fazaclo] 250 mg PO QAM 01/11/16 05/04/17 CloZAPine [Fazaclo] 300 mg PO HS 01/11/16 05/04/17 Haloperidol Oral Conc [Haldol] 5 mg PO Q8HR PRN MDD tab & liquid 01/11/16 05/04/17 both active order Haloperidol [Haldol] 5 mg PO Q8HR PRN 01/11/16 05/04/17 [place] Oral Soln [Scalp Level] 8 meq PO HS 01/11/16 05/04/17 Magnesium Citrate [Citroma] 296 ml PO DAILY PRN 01/11/16 05/04/17 Propranolol [Inderal] 10 mg PO BID 01/11/16 05/04/17 Bisacodyl [Dulcolax] 10 mg RC DAILY PRN 05/04/17 05/04/17 Cetirizine HCl [Zyrtec] 10 mg PO DAILY PRN 05/04/17 05/04/17 Cholecalciferol (Vitamin D3) 2,000 unit PO DAILY 06/07/17 06/07/17 [Vitamin D3] GuaiFENesin/Dextromethorphan 10 ml PO Q8H PRN 05/04/17 05/04/17 [Robitussin/Dm] Magnesium Hydroxide [Milk of 30 ml PO DAILY PRN 05/04/17 05/04/17 Magnesia] Magnesium Hydroxide [Milk of 60 ml PO MOTHSA 05/04/17 05/04/17 Magnesia] Rectal Syringe [Enema Syringe] 1 each RC DAILY PRN 05/04/17 05/04/17 Sennosides/Docusate Sodium 1 each PO BID PRN 05/04/17 05/04/17 [Senna-S Tablet] Allergies Allergy/AdvReac Type Severity Reaction Status Date / Time chlorpromazine Allergy Rash Verified 05/04/17 07:34 [From Thorazine] aspirin [ASA] AdvReac Itching Verified 05/04/17 07:34 Limitations: ROS unobtainable due to patients medical condition Abdominal Pain PMH - Past Medical History Medical history: Reports: dementia, diabetes, GERD, hyperlipidemia, hypertension Male Surgical History: Reports: other Psychiatric history: Reports: anxiety, schizophrenia - Social History Smoking status: Never smoker Alcohol use: Reports: none Drug use: Reports: none Physical Exam - General Limitations: no limitations General appearance: alert - Head Head exam: atraumatic, normocephalic - Eye Eye exam: Present: normal appearance - ENT ENT exam: normal exam - Neck Neck exam: Present: normal inspection - Chest Chest inspection: Present: normal inspection - Respiratory Respiratory exam: Present: normal lung sounds bilaterally - Cardiovascular Cardiovascular exam: Present: regular rate - Abdominal Exam Abdominal exam: Present: soft, Non-Tender, diminished bowel sounds. Absent: distention, guarding, rebound, rigidity - Extremities Exam Extremities exam: Present: normal inspection - Neurological Exam Neurological exam: Present: alert - Psychiatric Psychiatric exam: Present: other (Really unable to evaluate.) - Skin Skin exam: Present: warm, dry, intact Course Vital Signs Temperature 98.4 F 08/25/19 11:47 Pulse Rate 94 08/25/19 11:47 Respiratory Rate 18 08/25/19 11:47 Blood Pressure 150/98 08/25/19 11:47 O2 Sat by Pulse Oximetry 97 08/25/19 11:47 Temperature 98.4 F 08/25/19 11:47 Pulse Rate 88 08/25/19 12:00 Respiratory Rate 20 08/25/19 12:00 Blood Pressure 135/88 08/25/19 12:00 O2 Sat by Pulse Oximetry 96 08/25/19 12:00 Oxygen Delivery Oxygen Delivery Room Air Abdominal Pain - MDM Narrative Medical decision making narrative: We will do a complete workup for small bowel obstruction and disposition accord ingly. Patient provides no history whatsoever. I he does not appear uncomfortable on physical examination. Examination the abdomen provided no increase in pain or patient discomfort. CT scan did not fact revealed a small bowel obstruction. We spoke with general surgery who recommended an NG tube and to admit to hospitalist service. We spoke the hospitalist agreed to accept the patient. He was admitted in stable condition. - Medical Records Medical records reviewed: Yes I reviewed the patient's medical records. Medical records are reviewed from the [place]. I cannot find any recent labs. I also was unable to open the x-ray disc. - Lab Data Lab results reviewed: Yes I reviewed the patient's lab results. Result diagrams: 08/25/19 12:22 08/25/19 12:22 Lab Results 08/25/19 08/25/19 08/25/19 Range/Units 12:22 12:22 12:22 WBC 13.5 H (4.3-11.1) K/mcL RBC 4.94 (4.19-5.50) M/mcL Hgb 15.0 (12.9-16.9) g/dL Hct 44.4 (37.5-50.1) % MCV 89.9 (83.0-100.0) fL MCH 30.4 (28.0-33.3) pg MCHC 33.8 (31.6-35.5) g/dL RDW 14.5 (11.5-14.5) % Plt Count 184 (140-400) K/mcL MPV 10.5 (9.4-12.4) fL Immature Gran % 0.4 (0-4) % Seg Neutrophils % 75.7 % Lymphocytes % 16.0 % Monocytes % 7.0 % Eosinophils % 0.7 % Basophils % 0.2 % Neutrophils # 10.2 H (1.6-8.9) K/mcL Lymphocytes # 2.2 (0.6-4.6) K/mcL Monocytes # 1.0 (0.0-1.3) K/mcL Eosinophils # 0.1 (0.0-0.6) K/mcL Basophils # 0.0 (0.0-0.2) K/mcL PT 13.8 H (9.4-12.1) Seconds INR 1.2 APTT 35.2 (26.0-36.0) Seconds Sodium 139 (136-145) mEq/L Potassium 3.4 L (3.5-5.1) mEq/L Chloride 108 H (98-107) mEq/L Carbon Dioxide 24 (23-29) mEq/L BUN 15 (8-23) mg/dL Creatinine 0.90 (0.70-1.30) mg/dL Est GFR ( Amer) > 60 (> 60) Est GFR (Non-Af Amer) > 60 (> 60) BUN/Creatinine Ratio 17 (6-26) Glucose 139 H (70-105) mg/dL Calculated Osmolality 291 (280-300) Lactic Acid (0.5-2.2) mmol/L Calcium 9.0 (8.6-10.3) mg/dL Total Bilirubin 0.5 (0.3-1.0) mg/dL Direct Bilirubin 0.1 (0.0-0.2) mg/dL Indirect Bilirubin 0.4 (0.0-1.2) mg/dL AST 14 (13-39) Units/L ALT 14 (7-52) Units/L Alkaline Phosphatase 72 (34-104) Units/L Troponin I < 0.03 (< 0.04) ng/mL Serum Total Protein 6.5 (6.4-8.9) g/dL Albumin 4.0 (3.5-5.7) g/dL Globulin 2.5 (2.4-3.5) g/dL Albumin/Globulin Ratio 1.6 (1.1-2.2) Amylase 16 L (29-103) Units/L Lipase 14 (11-82) Units/L 08/25/19 Range/Units 12:22 WBC (4.3-11.1) K/mcL RBC (4.19-5.50) M/mcL Hgb (12.9-16.9) g/dL Hct (37.5-50.1) % MCV (83.0-100.0) fL MCH (28.0-33.3) pg MCHC (31.6-35.5) g/dL RDW (11.5-14.5) % Plt Count (140-400) K/mcL MPV (9.4-12.4) fL Immature Gran % (0-4) % Seg Neutrophils % % Lymphocytes % % Monocytes % % Eosinophils % % Basophils % % Neutrophils # (1.6-8.9) K/mcL Lymphocytes # (0.6-4.6) K/mcL Monocytes # (0.0-1.3) K/mcL Eosinophils # (0.0-0.6) K/mcL Basophils # (0.0-0.2) K/mcL PT (9.4-12.1) Seconds INR APTT (26.0-36.0) Seconds Sodium (136-145) mEq/L Potassium (3.5-5.1) mEq/L Chloride (98-107) mEq/L Carbon Dioxide (23-29) mEq/L BUN (8-23) mg/dL Creatinine (0.70-1.30) mg/dL Est GFR ( Amer) (> 60) Est GFR (Non-Af Amer) (> 60) BUN/Creatinine Ratio (6-26) Glucose (70-105) mg/dL Calculated Osmolality (280-300) Lactic Acid 1.2 (0.5-2.2) mmol/L Calcium (8.6-10.3) mg/dL Total Bilirubin (0.3-1.0) mg/dL Direct Bilirubin (0.0-0.2) mg/dL Indirect Bilirubin (0.0-1.2) mg/dL AST (13-39) Units/L ALT (7-52) Units/L Alkaline Phosphatase (34-104) Units/L Troponin I (< 0.04) ng/mL Serum Total Protein (6.4-8.9) g/dL Albumin (3.5-5.7) g/dL Globulin (2.4-3.5) g/dL Albumin/Globulin Ratio (1.1-2.2) Amylase (29-103) Units/L Lipase (11-82) Units/L - Radiology Data Radiology results reviewed: Yes I reviewed the patient's radiology results. - EKG Data EKG attestation: Yes I reviewed and interpreted this EKG. EKG shows normal: sinus rhythm Rate: normal Rhythm: NSR When compared to previous EKG there are: no significant changes Interpretation: no acute changes
[2019-08-25 13:05] LABS: Alanine Aminotransferase 14 Units/L (7-52); Albumin/Globulin Ratio 1.6 (1.1-2.2); Alkaline Phosphatase 72 Units/L (34-104); Amylase 16 Units/L (29-103); Aspartate Amino Transferase 14 Units/L (13-39); BUN/Creatinine Ratio 17 (6-26); Basophils % 0.2 %; Bilirubin,Direct 0.1 mg/dL (0.0-0.2); Bilirubin,Indirect 0.4 mg/dL (0.0-1.2); Bilirubin,Total 0.5 mg/dL (0.3-1.0); Blood Urea Nitrogen 15 mg/dL (8-23); Carbon Dioxide 24 mEq/L (23-29); Chloride 108 mEq/L (98-107); Eosinophils # 0.1 K/mcL (0.0-0.6); Eosinophils % 0.7 %; Globulin 2.5 g/dL (2.4-3.5); Glucose 139 mg/dL (70-105); Hematocrit 44.4 % (37.5-50.1); Immature Granulocytes % 0.4 % (0-4); Lipase 14 Units/L (11-82); Lymphocytes # 2.2 K/mcL (0.6-4.6); Mean Corpuscular HGB Conc 33.8 g/dL (31.6-35.5); Mean Corpuscular Hemoglobin 30.4 pg (28.0-33.3); Mean Corpuscular Volume 89.9 fL (83.0-100.0); Mean Platelet Volume 10.5 fL (9.4-12.4); Neutrophils # 10.2 K/mcL (1.6-8.9); Osmolality,Calculated 291 (280-300); Platelet Count 184 K/mcL (140-400); Potassium 3.4 mEq/L (3.5-5.1); Red Blood Count 4.94 M/mcL (4.19-5.50); Red Cell Distribution Width 14.5 % (11.5-14.5); Segmented Neutrophils % 75.7 %; Sodium 139 mEq/L (136-145); Total Protein 6.5 g/dL (6.4-8.9); Troponin I < 0.03 ng/mL (< 0.04); White Blood Count 13.5 K/mcL (4.3-11.1); eGFR For African Americans > 60 (> 60); eGFR For Non-African Americans > 60 (> 60)
[2019-08-25 13:15] LABS: INR 1.2; Prothrombin Time 13.8 Seconds (9.4-12.1)
[2019-08-25 13:17] LABS: Activated Partial Thrombo Time 35.2 Seconds (26.0-36.0)
[2019-08-25 15:00] LABS: Bilirubin,Urine Negative (Negative); Blood,Urine Negative (Negative); Clarity,Urine Clear (Clear); Color,Urine Yellow (Yellow); Glucose,Urine (UA) Normal (Normal); Ketones,Urine Trace mg/dL (Negative); Leukocyte Esterase,Urine Negative (Negative); Nitrite,Urine Negative (Negative); Protein,Urine Negative (Neg-Trace); Specific Gravity,Urine 1.016 (1.010-1.025); Urobilinogen,Urine Normal (Normal)
[2019-08-25] MEDS ORDERED: Naloxone 0.4 MG/ML INJ IVP PRN (15:26)
--- NOTE | 2019-08-25 17:26 | AcuteCare Surgery Consult Note ---
Date of Encounter: 08/25/19 Time of Encounter: 16:00 Assessment and Plan (1) Small bowel obstruction Current Visit: No Status: Resolved SBO ruled out clinically and pt had BM. CT findings are more consistant with chronic bowel changes most likely due to meds. DC NGT. Start clears and advance to regular as tolerated. Restart home meds per hospitalist. No surgery is indicated or will be. Surgery signing off. Thank you for allowing us to participate in this pt's care. DC back to [place] per primary service. (2) Schizophrenia Current Visit: No Status: Chronic Qualifiers: Schizophrenia type: unspecified Qualified Code(s): F20.9 - Schizophrenia, unspecified (3) DM type 2 (diabetes mellitus, type 2) Current Visit: No Status: Chronic Qualifiers: Diabetes mellitus assisted insulin use: without assisted use Diabetes mellitus complication status: without complication Qualified Code(s): E11.9 - Type 2 diabetes mellitus without complications History of Present Illness Consult date: 08/25/19 Reason for consult: other (SBO) Requesting physician: Magy Bernabe History of present illness: 68-year-old male presents emergency Department from the [place] for possible rule out of bowel obstruction. Patient is a schizophrenic and is essentially nonverbal. He provides no history whatsoever. History from EMS is that supposedly he may have had a small bowel obstruction he was sent here for evaluation and treatment. Evidently patient had an x-ray at the [place] with no other labs and I am aware of that was potentially possible for a small bowel obstruction. Therefore he was sent here. Patient is DNR CC. No history was obtained from patient he did not have complaints of pain. Past Med Surg Social Fam HX - Past Medical History Medical history: dementia, diabetes, GERD, hyperlipidemia, hypertension Additional medical history: constipation, bowel obstruction, dysphagia, thrombocytopenia, ataxia Psychiatric history: anxiety, schizophrenia - Past Surgical History Surgical History: other (Laparotomy) Additional surgical history: Dysphagia - Social History Smoking Status: Never smoker Smokeless Tobacco Status: No Alcohol use: none Drug use: none Medications and Allergies Acetaminophen [Tylenol] 650 mg PO BID PRN 01/11/16 [History] CloZAPine [Fazaclo] 250 mg PO QAM 01/11/16 [History] CloZAPine [Fazaclo] 300 mg PO HS 01/11/16 [History] Haloperidol Oral Conc [Haldol] 5 mg PO Q8HR PRN MDD tab & liquid both active order 01/11/16 [History] Haloperidol [Haldol] 5 mg PO Q8HR PRN 01/11/16 [History] [place] Oral Soln [[place]] 8 meq PO HS 01/11/16 [History] Magnesium Citrate [Citroma] 296 ml PO DAILY PRN 01/11/16 [History] Propranolol [Inderal] 10 mg PO BID 01/11/16 [History] Bisacodyl [Dulcolax] 10 mg RC DAILY PRN 05/04/17 [History] Cetirizine HCl [Zyrtec] 10 mg PO DAILY PRN 05/04/17 [History] Cholecalciferol (Vitamin D3) [Vitamin D3] 2,000 unit PO DAILY 05/04/17 [History] GuaiFENesin/Dextromethorphan [Robitussin/Dm] 10 ml PO Q8H PRN 05/04/17 [History] Magnesium Hydroxide [Milk of Magnesia] 30 ml PO DAILY PRN 05/04/17 [History] Magnesium Hydroxide [Milk of Magnesia] 60 ml PO MOTHSA 05/04/17 [History] Rectal Syringe [Enema Syringe] 1 each RC DAILY PRN 05/04/17 [History] Sennosides/Docusate Sodium [Senna-S Tablet] 1 each PO BID PRN 05/04/17 [History] Allergy/AdvReac Type Severity Reaction Status Date / Time chlorpromazine Allergy Rash Verified 05/04/17 07:34 [From Thorazine] aspirin [ASA] AdvReac Itching Verified 05/04/17 07:34 Review of Systems All systems PM: The remainder of the systems were reviewed and are negative - Constitutional as per HPI (pt answers yes or no questions), no anorexia, no chills, no fatigue, no fever(s) - EENT Nose, mouth and throat: no dizziness, no dysphagia, no nasal congestion, no nasal discharge, no sinus pain, no sinus pressure, no sore throat - Cardiovascular no chest pain, no dyspnea - Respiratory no cough, no dyspnea, no wheezing - Gastrointestinal no abdominal pain, no bloating, no constipation, no diarrhea, no nausea, no vomiting - Genitourinary no dysuria - Musculoskeletal no back pain, no neck pain - Integumentary no dry skin, no pruritus, no wounds - Psychiatric anxiety, depression, other - Hematologic/Lymphatic no easy bleeding, no easy bruising General Surgery Exam Initial Vital Signs Temp Pulse Resp BP Pulse Ox 98.4 F 94 18 150/98 97 08/25/19 11:47 08/25/19 11:47 08/25/19 11:47 08/25/19 11:47 08/25/19 11:47 - General physical appearance well developed, well nourished, no distress, no pain. negative: obese, jaundice - Eyes PERRL, normal ocular movement. negative: icteric - ENT normal mucosa, no congestion. negative: nasal discharge - Neck no masses, trachea midline, no lymphadectomy, no venous distension - Respiratory normal respiratory effort, clear to auscultation - Cardiovascular Cardiovascular exam: Present: RRR. Absent: JVD - Abdomen Abdomen general surgery: Present: bowel sounds present, soft, non tender. Absent: distended, guarding, rebound - Genitourinary Present: normal penis with no external lesions - Integumentary Integumentary general surgery: Present: warm and dry - Neurologic Present: normal coordination, other - Musculoskeletal Present: normal posture - Psychiatric Psychiatric general surgery: Present: appropriate. Absent: A&Ox3 Exam Initial Vital Signs Temp Pulse Resp BP Pulse Ox 98.4 F 94 18 150/98 97 08/25/19 11:47 08/25/19 11:47 08/25/19 11:47 08/25/19 11:47 08/25/19 11:47 Results - Labs 08/25/19 12:22 08/25/19 12:22 Abnormal lab results WBC 13.5 K/mcL (4.3-11.1) H 08/25/19 12:22 Neutrophils # 10.2 K/mcL (1.6-8.9) H 08/25/19 12:22 PT 13.8 Seconds (9.4-12.1) H 08/25/19 12:22 Potassium 3.4 mEq/L (3.5-5.1) L 08/25/19 12:22 Chloride 108 mEq/L (98-107) H 08/25/19 12:22 Glucose 139 mg/dL (70-105) H 08/25/19 12:22 Amylase 16 Units/L (29-103) L 08/25/19 12:22 Urine Ketones Trace mg/dL (Negative) H 08/25/19 14:28 Diabetes panel 08/25/19 Range/Units 12:22 Sodium 139 (136-145) mEq/L Potassium 3.4 L (3.5-5.1) mEq/L Chloride 108 H (98-107) mEq/L Carbon Dioxide 24 (23-29) mEq/L BUN 15 (8-23) mg/dL Creatinine 0.90 (0.70-1.30) mg/dL Glucose 139 H (70-105) mg/dL Calcium 9.0 (8.6-10.3) mg/dL AST 14 (13-39) Units/L ALT 14 (7-52) Units/L Alkaline Phosphatase 72 (34-104) Units/L Albumin 4.0 (3.5-5.7) g/dL Calcium panel 08/25/19 Range/Units 12:22 Calcium 9.0 (8.6-10.3) mg/dL Albumin 4.0 (3.5-5.7) g/dL Pituitary panel 08/25/19 Range/Units 12:22 Sodium 139 (136-145) mEq/L Potassium 3.4 L (3.5-5.1) mEq/L Chloride 108 H (98-107) mEq/L Carbon Dioxide 24 (23-29) mEq/L BUN 15 (8-23) mg/dL Creatinine 0.90 (0.70-1.30) mg/dL Glucose 139 H (70-105) mg/dL Calcium 9.0 (8.6-10.3) mg/dL Adrenal panel 08/25/19 Range/Units 12:22 Sodium 139 (136-145) mEq/L Potassium 3.4 L (3.5-5.1) mEq/L Chloride 108 H (98-107) mEq/L Carbon Dioxide 24 (23-29) mEq/L BUN 15 (8-23) mg/dL Creatinine 0.90 (0.70-1.30) mg/dL Glucose 139 H (70-105) mg/dL Calcium 9.0 (8.6-10.3) mg/dL Total Bilirubin 0.5 (0.3-1.0) mg/dL AST 14 (13-39) Units/L ALT 14 (7-52) Units/L Alkaline Phosphatase 72 (34-104) Units/L Albumin 4.0 (3.5-5.7) g/dL All other labs normal. - Imaging CT scan - abdomen: image reviewed ( Dilated proximal small bowel loops with a transition point in the left abdomen suggestive of likely proximal small bowel obstruction) CT scan - pelvis: image reviewed Consult Discharge Plan - Plan [facility]Primary Care Provider[facility] -
--- NOTE | 2019-08-25 17:39 | Internal Med History&Physical ---
Date of Encounter: 08/25/19 Time of Encounter: 14:30 Internal Medicine - H&P: HPI Chief complaint: sent from [place] Admitted From: Emergency Dept Plans for Post Hospital Care: Transfer Waste Handling Technician Care History of present illness: Mr. Wilder is a 68 year old male with hx of schizophrenia transferred from [place] urgent care. He was evaluated by ED here and admitted due to concern for SBO. Mr Wilder is unable to give me any history. He is minimally verbal. He was seen in [facility] and there was concern for SBO. He was transferred to our ED and CT revealed dilated bowel with transition zone. He does not report any pain or nausea now. No other history is obtainable from patient. [place] records reviewed. Past Med Surg Social Fam HX - Past Medical History Medical history: dementia, diabetes, GERD, hyperlipidemia, hypertension Additional medical history: constipation, bowel obstruction, dysphagia, thrombocytopenia, ataxia Psychiatric history: anxiety, schizophrenia - Past Surgical History Surgical History: other (Laparotomy) Additional surgical history: Dysphagia - Social History Smoking Status: Never smoker Smokeless Tobacco Status: No Alcohol use: none Drug use: none - Additional Family History Additional family history: Unable to obtain from patient. Internal Medicine - H&P: Meds Acetaminophen [Tylenol] 650 mg PO BID PRN 01/11/16 [History] CloZAPine [Fazaclo] 250 mg PO QAM 01/11/16 [History] CloZAPine [Fazaclo] 300 mg PO HS 01/11/16 [History] Haloperidol Oral Conc [Haldol] 5 mg PO Q8HR PRN MDD tab & liquid both active order 01/11/16 [History] Haloperidol [Haldol] 5 mg PO Q8HR PRN 01/11/16 [History] [place] Oral Soln [[place]] 8 meq PO HS 01/11/16 [History] Magnesium Citrate [Citroma] 296 ml PO DAILY PRN 01/11/16 [History] Propranolol [Inderal] 10 mg PO BID 01/11/16 [History] Bisacodyl [Dulcolax] 10 mg RC DAILY PRN 05/04/17 [History] Cetirizine HCl [Zyrtec] 10 mg PO DAILY PRN 05/04/17 [History] Cholecalciferol (Vitamin D3) [Vitamin D3] 2,000 unit PO DAILY 05/04/17 [History] GuaiFENesin/Dextromethorphan [Robitussin/Dm] 10 ml PO Q8H PRN 05/04/17 [History] Magnesium Hydroxide [Milk of Magnesia] 30 ml PO DAILY PRN 05/04/17 [History] Magnesium Hydroxide [Milk of Magnesia] 60 ml PO MOTHSA 05/04/17 [History] Rectal Syringe [Enema Syringe] 1 each RC DAILY PRN 05/04/17 [History] Sennosides/Docusate Sodium [Senna-S Tablet] 1 each PO BID PRN 05/04/17 [History] Allergy/AdvReac Type Severity Reaction Status Date / Time chlorpromazine Allergy Rash Verified 05/04/17 07:34 [From Thorazine] aspirin [ASA] AdvReac Itching Verified 05/04/17 07:34 ROS unobtainable: due to mental status All Systems PM: A 10-system review of systems was performed and is negative for pertinent findings except as documented above in the HPI. Review of systems: He answers me minimally - Constitutional Additional comments: thirsty - Constitutional Vitals: Temp Pulse Resp BP Pulse Ox 98.4 F 86 16 145/83 98 08/25/19 11:47 08/25/19 14:52 08/25/19 14:52 08/25/19 14:52 08/25/19 14:52 General appearance: Absent: answers questions appropriately Exam: See below - Head Head exam: Present: normocephalic - Eye Eye exam: Present: EOMI, conjuntiva pink - ENT ENT exam: Present: mucous membranes dry - Neck Neck exam general surgery: Present: normal inspection, supple - Respiratory Respiratory exam: Present: CTAB. Absent: rhonchi, wheezes - Cardiovascular Cardiovascular exam: Present: RRR. Absent: systolic murmur, tachycardia - GI/Abdominal GI/Abdominal exam: Present: soft. Absent: tenderness Additional comments: Soft. Does not appear tender. Bowel sounds heard. - Extremities Exam Extremities exam: Present: warm. Absent: pedal edema, tenderness - Neurological Exam Neurological exam: Present: alert Additional comments: Moves all extremities. Follows commands for me. - Psychiatric Psychiatric exam: Present: flat affect - Skin Skin exam: Present: dry, warm. Absent: rash Internal Med - H&P Results - Labs CBC & Chem 7: 08/25/19 12:22 08/25/19 12:22 Labs: Short CBC 08/25/19 Range/Units 12:22 WBC 13.5 H (4.3-11.1) K/mcL Hgb 15.0 (12.9-16.9) g/dL Hct 44.4 (37.5-50.1) % Plt Count 184 (140-400) K/mcL Neutrophils # 10.2 H (1.6-8.9) K/mcL BMP 08/25/19 12:22 Sodium 139 Potassium 3.4 L Chloride 108 H Carbon Dioxide 24 BUN 15 Creatinine 0.90 Glucose 139 H Calcium 9.0 Cardiac Enzymes 08/25/19 Range/Units 12:22 Troponin I < 0.03 (< 0.04) ng/mL Liver Function 08/25/19 Range/Units 12:22 Total Bilirubin 0.5 (0.3-1.0) mg/dL Direct Bilirubin 0.1 (0.0-0.2) mg/dL AST 14 (13-39) Units/L ALT 14 (7-52) Units/L Alkaline Phosphatase 72 (34-104) Units/L Albumin 4.0 (3.5-5.7) g/dL Urine 08/25/19 Range/Units 14:28 Urine Color Yellow (Yellow) Urine Clarity Clear (Clear) Urine pH 6.0 (5.0-8.0) pH Units Ur Specific [place] 1.016 (1.010-1.025) Urine Protein Negative (Neg-Trace) mg/dL Urine Glucose (UA) Normal (Normal) mg/dL - Impressions ITS Impressions Chest X-Ray 08/25/19 12:27 IMPRESSION: Atelectasis versus infection D/ / Margaret Black MD / Margaret Black MD Interpreting Provider: Margaret Black MD Abdomen/Pelvis CT 08/25/19 12:45 IMPRESSION: 1. Dilated proximal small bowel loops with a transition point in the left abdomen suggestive of likely proximal small bowel obstruction. Similar findings were seen on 05/03/2017. 2. Thickening of the anterior aspect of the urinary bladder. Focal inflammation or neoplasm should be considered. RECOMMENDATIONS: 1. Surgical consult for small bowel obstruction. 2. Urology consult for thickening of the anterior bladder wall. D/ / 08/25/2019 12:53:46 Jihan Chance MD / Cristina Paez Interpreting Provider: Jihan Chance MD - Assessment and Plan (1) Small bowel obstruction Current Visit: Yes Status: Acute Assessment and plan: Pt transferred from [facility] due to concern for SBO. CT abd here shows transition point. He is comfortable on exam NG placed in ED. IV fluids. Pain control. Surgery eval. (2) Hypokalemia Current Visit: No Status: Acute Assessment and plan: Replace (3) DM type 2 (diabetes mellitus, type 2) Current Visit: No Status: Chronic Assessment and plan: Monitor blood sugars He is not on any diabetic medications. Qualifiers: Diabetes mellitus nursing home insulin use: without intermodal customer service use Diabetes mellitus complication status: without complication Qualified Code(s): E11.9 - Type 2 diabetes mellitus without complications (4) GERD (gastroesophageal reflux disease) Current Visit: No Status: Chronic Assessment and plan: Chronic issue Qualifiers: Esophagitis presence: esophagitis presence not specified Qualified Code(s): K21.9 - Gastro-esophageal reflux disease without esophagitis (5) Schizophrenia Current Visit: No Status: Chronic Assessment and plan: Will continue meds as able. Currently NPO with NG tube. May need psych to assist with med management. Qualifiers: Schizophrenia type: unspecified Qualified Code(s): F20.9 - Schizophrenia, unspecified - Time Spent With Patient Total time spent is greater than 50% in coordination of care (as documented) at patient's floor/unit and/or counseling patient:
[2019-08-25] MEDS: 0.9 % Sodium Chloride 1,000 ML IVC SCH ×2 (18:20→22:09)
[2019-08-25] MEDS ORDERED: Potassium Chloride Elixir 20 MEQ/15 ML UDC PO ONE (21:58)
[2019-08-26] MEDS ORDERED: Haloperidol Lactate 5 MG/ML VIAL IVP ONE (02:52)
[2019-08-26] MEDS ORDERED: *HR* Promethazine 25 MG/ML VIAL IVP ONE (02:52)
[2019-08-26] MEDS ORDERED: *HR* Promethazine 25 MG/ML VIAL ONE (02:57)
[2019-08-26 06:31] LABS: Basophils # 0.1 K/mcL (0.0-0.2); Basophils % 0.5 %; Eosinophils # 0.2 K/mcL (0.0-0.6); Eosinophils % 2.2 %; Hematocrit 44.6 % (37.5-50.1); Immature Granulocytes % 0.2 % (0-4); Lymphocytes # 2.9 K/mcL (0.6-4.6); Lymphocytes % 31.5 %; Mean Corpuscular HGB Conc 33.6 g/dL (31.6-35.5); Mean Corpuscular Hemoglobin 30.1 pg (28.0-33.3); Mean Corpuscular Volume 89.6 fL (83.0-100.0); Mean Platelet Volume 10.5 fL (9.4-12.4); Monocytes # 0.6 K/mcL (0.0-1.3); Monocytes % 6.7 %; Neutrophils # 5.5 K/mcL (1.6-8.9); Platelet Count 176 K/mcL (140-400); Red Blood Count 4.98 M/mcL (4.19-5.50); Red Cell Distribution Width 14.5 % (11.5-14.5); Segmented Neutrophils % 58.9 %; White Blood Count 9.3 K/mcL (4.3-11.1)
[2019-08-26 06:54] LABS: BUN/Creatinine Ratio 12 (6-26); Blood Urea Nitrogen 10 mg/dL (8-23); Calcium 8.5 mg/dL (8.6-10.3); Carbon Dioxide 25 mEq/L (23-29); Chloride 112 mEq/L (98-107); Glucose 98 mg/dL (70-105); Magnesium 2.1 mg/dL (1.6-2.6); Osmolality,Calculated 291 (280-300); Phosphorous 1.7 mg/dL (2.7-4.5); Potassium 3.8 mEq/L (3.5-5.1); Sodium 141 mEq/L (136-145); eGFR For African Americans > 60 (> 60); eGFR For Non-African Americans > 60 (> 60)
[2019-08-26] MEDS ORDERED: *HR* LORazepam 1 MG TABLET PO PRN (08:55)
[2019-08-26] MEDS ORDERED: cloZAPine 100 MG TABLET PO SCH ×2 (09:00→21:00)
[2019-08-26] MEDS ORDERED: Cholecalciferol (D-3) 1,000 UNIT (25MCG) TABLET PO SCH (09:00)
[2019-08-26] MEDS ORDERED: Sennosides/Docusate Sodium TABLET PO SCH (09:00)
--- NOTE | 2019-08-26 09:10 | Discharge Summary ---
- NOTES TO OUTPATIENT PROVIDER Notes to Outpatient Provider: Pt sent from [facility] due to concerns for SBO. CT here with changes - seen by surgery and cleared for diet. Changes on CT are chronic due to patients psychiatric issues and meds. Date of Encounter: 08/26/19 Time of Encounter: 09:07 - Discharge Diagnosis (1) Small bowel obstruction Priority: Primary Status: Ruled-out (2) Hypokalemia Priority: Secondary Status: Resolved (3) DM type 2 (diabetes mellitus, type 2) Priority: Secondary Status: Chronic Qualifiers: Diabetes mellitus rn long term care insulin use: without jail use Diabetes mellitus complication status: without complication Qualified Code(s): E11.9 - Type 2 diabetes mellitus without complications (4) GERD (gastroesophageal reflux disease) Priority: Secondary Status: Chronic Qualifiers: Esophagitis presence: esophagitis presence not specified Qualified Code(s): K21.9 - Gastro-esophageal reflux disease without esophagitis (5) Schizophrenia Priority: Secondary Status: Chronic Qualifiers: Schizophrenia type: unspecified Qualified Code(s): F20.9 - Schizophrenia, unspecified (6) Chronic constipation Priority: Secondary Status: Chronic (7) Chronic dementia Priority: Secondary Status: Chronic Qualifiers: Dementia behavioral disturbance: without behavioral disturbance Qualified Code(s): F03.90 - Unspecified dementia without behavioral disturbance (8) Hypophosphatasia Priority: Secondary Status: Resolved Hospital course: Mr. Wilder is a 68 year old male with hx of schizophrenia sent from [facility] due to concern for SBO. Mr Wilder has long hx of chronic constipation. He was seen in [facility] and concern for SBO. He was sent to ED and CT showed transition point in abdomen. NG inserted and patient admitted. He was made NPO. He was evaluted by surgery and NG removed and diet started. He tolerated this and is now afebrile. He is ready to return to [place]. - Time Spent with Patient Total time spent providing and/or coordinating discharge services: 41min - Discharge Medications Prescriptions: Continued Mccloud Oral Soln [Mccloud] 12 meq PO HS Magnesium Citrate [Citroma] 296 ml PO Q3D PRN PRN Reason: Constipation Propranolol [Inderal] 10 mg PO BID CloZAPine [Fazaclo] 100 mg PO DAILY CloZAPine [Fazaclo] 250 mg PO HS Sennosides/Docusate Sodium [Senna-S Tablet] 2 each PO BID Cholecalciferol (Vitamin D3) [Vitamin D3] 1,000 unit PO DAILY Tamsulosin [Flomax] 0.4 mg PO DAILY Melatonin 6 mg PO HS LORazepam [Ativan] 1 mg PO TID PRN PRN Reason: Agitation Polyethylene Glycol 3350 17 gm PO DAILY Pantoprazole Sodium 40 mg PO DAILY Lactulose 10 gm PO BID Home Medications: CloZAPine [Fazaclo] 100 mg PO DAILY 01/11/16 [History] CloZAPine [Fazaclo] 250 mg PO HS 01/11/16 [History] Mccloud Oral Soln [Mccloud] 12 meq PO HS 01/11/16 [History] Magnesium Citrate [Citroma] 296 ml PO Q3D PRN 01/11/16 [History] Propranolol [Inderal] 10 mg PO BID 01/11/16 [History] Cholecalciferol (Vitamin D3) [Vitamin D3] 1,000 unit PO DAILY 05/04/17 [History] Sennosides/Docusate Sodium [Senna-S Tablet] 2 each PO BID 05/04/17 [History] LORazepam [Ativan] 1 mg PO TID PRN 08/26/19 [History] Lactulose 10 gm PO BID 08/26/19 [History] Melatonin 6 mg PO HS 08/26/19 [History] Pantoprazole Sodium 40 mg PO DAILY 08/26/19 [History] Polyethylene Glycol 3350 17 gm PO DAILY 08/26/19 [History] Tamsulosin [Flomax] 0.4 mg PO DAILY 08/26/19 [History] Allergies/Adverse Reactions: Allergy/AdvReac Type Severity Reaction Status Date / Time chlorpromazine Allergy Rash Verified 05/04/17 07:34 [From Thorazine] aspirin [ASA] AdvReac Itching Verified 05/04/17 07:34 Date of admission: 08/25/19 14:41 [facility] care physician: [facility] Consults: 08/25/19 13:54 Consult to Surgery [CONS] Stat Consulting Provider: Acute Care Surgery Reason for Consult: bowel obstruction Time Notified: 13:55 Call Completed: Yes Discharging clinician: Scot Swartz Anticipated date of discharge: 08/26/19 - Constitutional Vitals: Temp Pulse Resp BP Pulse Ox 98.5 F 83 17 135/92 97 08/26/19 07:29 08/26/19 07:29 08/26/19 07:29 08/26/19 07:29 08/26/19 07:29 General appearance: Absent: answers questions appropriately Exam: see below - Head Head exam: Present: atraumatic, normocephalic - Eye Eye exam: Present: conjuntiva pink - ENT ENT exam: Present: mucous membranes moist - Neck Neck exam general surgery: Present: supple - Respiratory Respiratory exam: Present: CTAB. Absent: rales, rhonchi, wheezes - Cardiovascular Cardiovascular exam: Present: distant heart sounds, RRR - GI/Abdominal GI/Abdominal exam: Present: soft. Absent: tenderness - Extremities Exam Extremities exam: Present: warm. Absent: tenderness - Neurological Exam Neurological exam: Present: alert - Skin Skin exam: Present: dry, warm. Absent: rash - Patient Status Disposition: Transfer LTC Condition: Fair Functional capacity at discharge: independent ambulation Overall status at discharge: patient is progressing back to baseline - Discharge Instructions Follow Up With: [facility] [Primary Care Provider] - - Diet and Activity Activity: resume usual activities as tolerated Diet: advance to your usual diet
--- NOTE | 2019-08-26 09:14 | Physician Discharge Referral ---
ExtendedCare Referral Info Transfer To: [place] Provider in Charge after Transfer: PCP Institutional Level of Care: Intermediate - Diagnosis (1) Small bowel obstruction Priority: Primary Status: Ruled-out (2) Hypokalemia Priority: Secondary Status: Resolved (3) DM type 2 (diabetes mellitus, type 2) Priority: Secondary Status: Chronic (4) GERD (gastroesophageal reflux disease) Priority: Secondary Status: Chronic (5) Schizophrenia Priority: Secondary Status: Chronic (6) Chronic constipation Priority: Secondary Status: Chronic (7) Chronic dementia Priority: Secondary Status: Chronic Expected Duration of Placement: ferry terminal agent Prognosis: Fair - Transfer Medications Home Medications: CloZAPine [Fazaclo] 100 mg PO DAILY 01/11/16 [History] CloZAPine [Fazaclo] 250 mg PO HS 01/11/16 [History] Sattley Oral Soln [Sattley] 12 meq PO HS 01/11/16 [History] Magnesium Citrate [Citroma] 296 ml PO Q3D PRN 01/11/16 [History] Propranolol [Inderal] 10 mg PO BID 01/11/16 [History] Cholecalciferol (Vitamin D3) [Vitamin D3] 1,000 unit PO DAILY 05/04/17 [History] Sennosides/Docusate Sodium [Senna-S Tablet] 2 each PO BID 05/04/17 [History] LORazepam [Ativan] 1 mg PO TID PRN 08/26/19 [History] Lactulose 10 gm PO BID 08/26/19 [History] Melatonin 6 mg PO HS 08/26/19 [History] Pantoprazole Sodium 40 mg PO DAILY 08/26/19 [History] Polyethylene Glycol 3350 17 gm PO DAILY 08/26/19 [History] Tamsulosin [Flomax] 0.4 mg PO DAILY 08/26/19 [History] Allergies/Adverse Reactions: Allergy/AdvReac Type Severity Reaction Status Date / Time chlorpromazine Allergy Rash Verified 05/04/17 07:34 [From Thorazine] aspirin [ASA] AdvReac Itching Verified 05/04/17 07:34 - Respiratory Orders None Smoking Cessation: Smoking cessation has been advised. For more information, call the [place] Tobacco Quit Line at 1-851-JXEN-NOW. - Ancillary Orders May use pressure relief devices daily prn, May consult with Dentist, Mainstreaming Facilitator, Medical Laboratory Manager PRN - Advance Directives Code Status: DNR-Comfort Care - History and Physical History/Physical reviewed & approved w/add comments: Unchanged - Mobility Orders Chair, Ambulate - Rehabiliation Orders Rehab Potential: Fair - Diet Orders Regular (Resume diet as before) CERTIFICATION: I certify that the transfer of the above named patient to an Extended Care Facility is necessary for the continuing treatment of the diagnosis listed. The above information is true and accurate reflection of patient's current condition. Confidential - Redisclosure prohibited without a patient's written consent.
[2019-08-26 16:12] VITALS: BP 144/91
[2019-08-26] MEDS ORDERED: cloZAPine 25 MG TABLET PO SCH (21:00)
[2019-08-26] MEDS ORDERED: Melatonin 3 MG TABLET PO SCH (21:00)
[2019-08-26] MEDS ORDERED: CLOZAPINE 250 MG PO SCH (21:00)
[2019-08-26] MEDS ORDERED: Lithium Oral Soln 300 MG/5 ML (8 mEq/5mL) UDC PO SCH (21:00)
--- NOTE | 2019-08-27 16:42 | Electrocardiograph Report ---
[facility] Test Date: 2019-08-25 Pat Name: Nathan Wilder Department: [id number] Room: 3A51 Gender: M Pattern Room Attendant: : 1950 Requested By: Carmine Florentino Order Number: [id number] Reading MD: Jeremy Wilcox Measurements Intervals [place] Rate: 88 P: 70 HI: 175 QRS: 55 QRSD: 115 T: 28 QT: 358 QTc: 434 Interpretive Statements Age not entered, assumed to be 52 years old for purpose of ECG interpretation Sinus rhythm Nonspecific intraventricular conduction delay Electronically Signed On 08-27-2019 16:40:53 EDT by Jeremy Wilcox
== END 2019-08-26 17:25 | DRG 390 ==
LOC: EMEROOARM 11:42 → 3ANU 11:42 → SUATTDRO 14:41 → 3ANU 15:20
PROVIDERS: ADMIT Internal Medicine; ATTEND Internal Medicine

== ENCOUNTER 2020-08-26 13:19 | Inpatient (IN) ==
[2020-08-26] MEDS ORDERED: Ondansetron 4 MG/2 ML VIAL IVP ONE (13:26)
[2020-08-26] MEDS ORDERED: Isovue-370 500 ML BOTTLE IVP ONE (13:27)
[2020-08-26 15:19] LABS: Basophils % 0.2 %; Eosinophils # 0.1 K/mcL (0.0-0.6); Eosinophils % 0.9 %; Hemoglobin 15.1 g/dL (12.9-16.9); Immature Granulocytes % 0.2 % (0-4); Lymphocytes % 22.3 %; Mean Corpuscular HGB Conc 33.6 g/dL (31.6-35.5); Mean Corpuscular Volume 92.4 fL (83.0-100.0); Mean Platelet Volume 10.8 fL (9.4-12.4); Monocytes % 11.3 %; Neutrophils # 5.9 K/mcL (1.6-8.9); Platelet Count 175 K/mcL (140-400); Red Blood Count 4.87 M/mcL (4.19-5.50); Segmented Neutrophils % 65.1 %; White Blood Count 9.1 K/mcL (4.3-11.1)
[2020-08-26 15:27] LABS: INR 1.3; Prothrombin Time 14.8 Seconds (9.4-12.1)
[2020-08-26 15:47] LABS: Alanine Aminotransferase 15 Units/L (7-52); Albumin 4.1 g/dL (3.5-5.7); Albumin/Globulin Ratio 1.6 (1.1-2.2); Alkaline Phosphatase 75 Units/L (34-104); Aspartate Amino Transferase 14 Units/L (13-39); BUN/Creatinine Ratio 18 (6-26); Bilirubin,Direct 0.1 mg/dL (0.0-0.2); Bilirubin,Indirect 0.5 mg/dL (0.0-1.0); Bilirubin,Total 0.6 mg/dL (0.3-1.0); Blood Urea Nitrogen 19 mg/dL (8-23); Calcium 9.1 mg/dL (8.6-10.3); Carbon Dioxide 26 mEq/L (23-29); Chloride 102 mEq/L (98-107); Globulin 2.6 g/dL (2.4-3.5); Glucose 107 mg/dL (70-105); Lipase 9 Units/L (11-82); Osmolality,Calculated 285 (280-300); Sodium 136 mEq/L (136-145); Total Protein 6.7 g/dL (6.4-8.9); Troponin I < 0.03 ng/mL (< 0.04); eGFR For African Americans > 60 (> 60); eGFR For Non-African Americans > 60 (> 60)
[2020-08-26] MEDS ORDERED: Naloxone 0.4 MG/ML INJ IVP PRN (17:27)
[2020-08-26] MEDS ORDERED: Ondansetron 4 MG/2 ML VIAL IVP PRN (17:29)
[2020-08-26] MEDS ORDERED: Morphine Sulfate 2 MG/ML SYRINGE IVP PRN (17:40)
[2020-08-26 18:29] LABS: Adenovirus Not Detected (Not Detect); Coronavirus 229E Not Detected (Not Detect); Coronavirus HKU1 Not Detected (Not Detect); Coronavirus NL63 Not Detected (Not Detect); Coronavirus OC43 Not Detected (Not Detect)
[2020-08-26 18:30] LABS: Bordetella Pertussis Not Detected (Not Detect); Chlamydophila pneumoniae Not Detected (Not Detect); Human Metapneumovirus Not Detected (Not Detect); Human Rhinovirus/Enterovirus Not Detected (Not Detect); Influenza A Subtype 2009 H1 Not Detected (Not Detect); Influenza B Not Detected (Not Detect); Mycoplasma pneumoniae Not Detected (Not Detect); Parainfluenza Virus 1 Not Detected (Not Detect); Parainfluenza Virus 2 Not Detected (Not Detect); Parainfluenza Virus 3 Not Detected (Not Detect); Parainfluenza Virus 4 Not Detected (Not Detect); Respiratory Syncytial Virus Not Detected (Not Detect); SARS-CoV-2 Not Detected (Not Detect)
[2020-08-26] MEDS: 0.9 % Sodium Chloride 1,000 ML IVC SCH (18:47)
[2020-08-26 20:06] LABS: Estimated Average Glucose 105 mg/dl
[2020-08-26] MEDS: *HR* Heparin 5,000 UNIT/ML VIAL SQ SCH (21:41)
[2020-08-26] MEDS: cloZAPine 100 MG TABLET PO SCH (21:41)
[2020-08-26] MEDS: Melatonin 3 MG TABLET PO SCH (21:42)
[2020-08-26] MEDS: Lithium Carbonate 300 MG CAPSULE PO SCH (21:42)
[2020-08-26] MEDS: Valproic Acid INJ 500 MG in 0.9 % Sodium Chloride 100 ML IVPB SCH (22:01)
[2020-08-26] MEDS: Artificial Tears SOLN 15 ML BOTTLE OP SCH (23:22)
[2020-08-27 04:08] LABS: Basophils % 0.3 %; Eosinophils # 0.1 K/mcL (0.0-0.6); Eosinophils % 1.2 %; Hematocrit 42.8 % (37.5-50.1); Hemoglobin 14.1 g/dL (12.9-16.9); Immature Granulocytes % 0.1 % (0-4); Lymphocytes # 2.2 K/mcL (0.6-4.6); Lymphocytes % 28.5 %; Mean Corpuscular HGB Conc 32.9 g/dL (31.6-35.5); Mean Corpuscular Hemoglobin 31.1 pg (28.0-33.3); Mean Corpuscular Volume 94.3 fL (83.0-100.0); Mean Platelet Volume 10.6 fL (9.4-12.4); Monocytes # 0.8 K/mcL (0.0-1.3); Monocytes % 10.7 %; Neutrophils # 4.5 K/mcL (1.6-8.9); Platelet Count 156 K/mcL (140-400); Red Blood Count 4.54 M/mcL (4.19-5.50); Red Cell Distribution Width 14.9 % (11.5-14.5); Segmented Neutrophils % 59.2 %; White Blood Count 7.6 K/mcL (4.3-11.1)
[2020-08-27 04:29] LABS: BUN/Creatinine Ratio 16 (6-26); Blood Urea Nitrogen 16 mg/dL (8-23); Calcium 8.4 mg/dL (8.6-10.3); Carbon Dioxide 27 mEq/L (23-29); Chloride 106 mEq/L (98-107); Glucose 99 mg/dL (70-105); Magnesium 2.1 mg/dL (1.6-2.6); Osmolality,Calculated 289 (280-300); Phosphorous 2.2 mg/dL (2.7-4.5); Potassium 3.6 mEq/L (3.5-5.1); Sodium 139 mEq/L (136-145); eGFR For African Americans > 60 (> 60); eGFR For Non-African Americans > 60 (> 60)
[2020-08-27] MEDS: 0.9 % Sodium Chloride 1,000 ML IVC SCH (05:05)
[2020-08-27] MEDS: *HR* Heparin 5,000 UNIT/ML VIAL SQ SCH ×2 (05:06→17:33)
[2020-08-27 05:28] LABS: Bilirubin,Urine Negative (Negative); Blood,Urine Negative (Negative); Clarity,Urine Clear (Clear); Color,Urine Yellow (Yellow); Glucose,Urine (UA) Normal (Normal); Ketones,Urine Trace mg/dL (Negative); Leukocyte Esterase,Urine Negative (Negative); Nitrite,Urine Negative (Negative); Protein,Urine Trace mg/dL (Neg-Trace); Specific Gravity,Urine > 1.030 (1.010-1.025); Urobilinogen,Urine Normal (Normal)
[2020-08-27] MEDS: Artificial Tears SOLN 15 ML BOTTLE OP SCH ×3 (09:42→22:01)
[2020-08-27] MEDS: Lithium Carbonate 300 MG CAPSULE PO SCH ×2 (09:42→22:00)
[2020-08-27] MEDS: cloZAPine 100 MG TABLET PO SCH ×2 (09:42→22:00)
[2020-08-27] MEDS ORDERED: 0.9 % Sodium Chloride 1,000 ML IVC SCH (14:30)
[2020-08-27] MEDS ORDERED: *HR* Dextrose 50 % in Water (Vial) 50 ML VIAL IVP STA (17:40)
[2020-08-27] MEDS ORDERED: *HR* Dextrose 25% in Water (Syg) 10 ML SYRINGE IVP ONE (17:48)
[2020-08-27] MEDS ORDERED: Dextrose Gel 15 GM/37.5 ML TUBE PO PRN ×2 (18:06)
[2020-08-27] MEDS ORDERED: D5% in Water 1,000 ML IVC PRN (18:06)
[2020-08-27] MEDS: Valproic Acid INJ 500 MG in 0.9 % Sodium Chloride 100 ML IVPB SCH (20:06)
[2020-08-27] MEDS: Melatonin 3 MG TABLET PO SCH (22:00)
[2020-08-28] MEDS: *HR* Heparin 5,000 UNIT/ML VIAL SQ SCH ×2 (05:27→17:21)
[2020-08-28 08:02] LABS: Hemoglobin 13.3 g/dL (12.9-16.9); Immature Granulocytes % 0.3 % (0-4); Mean Corpuscular HGB Conc 32.8 g/dL (31.6-35.5); Platelet Count 140 K/mcL (140-400); Red Cell Distribution Width 14.6 % (11.5-14.5)
[2020-08-28 08:04] LABS: Basophils % 0.3 %; Eosinophils # 0.1 K/mcL (0.0-0.6); Hematocrit 40.6 % (37.5-50.1); Immature Platelets 4.6 % (1.1-6.1); Lymphocytes # 1.5 K/mcL (0.6-4.6); Mean Corpuscular Hemoglobin 30.1 pg (28.0-33.3); Mean Corpuscular Volume 91.9 fL (83.0-100.0); Mean Platelet Volume 10.6 fL (9.4-12.4); Monocytes # 0.6 K/mcL (0.0-1.3); Monocytes % 9.1 %; Neutrophils # 4.6 K/mcL (1.6-8.9); Red Blood Count 4.42 M/mcL (4.19-5.50); Segmented Neutrophils % 66.3 %
[2020-08-28 08:22] LABS: BUN/Creatinine Ratio 14 (6-26); Blood Urea Nitrogen 12 mg/dL (8-23); Calcium 8.5 mg/dL (8.6-10.3); Carbon Dioxide 23 mEq/L (23-29); Chloride 109 mEq/L (98-107); Glucose 73 mg/dL (70-105); Magnesium 2.1 mg/dL (1.6-2.6); Osmolality,Calculated 288 (280-300); Potassium 3.6 mEq/L (3.5-5.1); Sodium 140 mEq/L (136-145); eGFR For African Americans > 60 (> 60); eGFR For Non-African Americans > 60 (> 60)
[2020-08-28] MEDS: Artificial Tears SOLN 15 ML BOTTLE OP SCH ×2 (10:28→21:40)
[2020-08-28] MEDS: cloZAPine 100 MG TABLET PO SCH ×2 (10:28→21:39)
[2020-08-28] MEDS: Lithium Carbonate 300 MG CAPSULE PO SCH ×2 (10:29→21:38)
[2020-08-28] MEDS: 0.9 % Sodium Chloride 1,000 ML IVC SCH (10:37)
[2020-08-28] MEDS: *HR* Dextrose 50 % in Water (Vial) 50 ML VIAL IVP PRN (16:06)
[2020-08-28] MEDS: Melatonin 3 MG TABLET PO SCH (21:39)
[2020-08-28] MEDS: Valproic Acid INJ 500 MG in 0.9 % Sodium Chloride 100 ML IVPB SCH (21:39)
[2020-08-29] MEDS: *HR* Dextrose 50 % in Water (Vial) 50 ML VIAL IVP PRN (00:20)
[2020-08-29] MEDS: 0.9 % Sodium Chloride 1,000 ML IVC SCH (02:32)
[2020-08-29] MEDS: *HR* Heparin 5,000 UNIT/ML VIAL SQ SCH ×2 (05:24→18:21)
[2020-08-29] MEDS: Lithium Carbonate 300 MG CAPSULE PO SCH ×2 (11:12→21:02)
[2020-08-29] MEDS: cloZAPine 100 MG TABLET PO SCH ×2 (11:12→21:02)
[2020-08-29] MEDS: Artificial Tears SOLN 15 ML BOTTLE OP SCH (11:48)
[2020-08-29] MEDS: Artificial Tears SOLN 15 ML BOTTLE BOTH EYES SCH ×2 (14:03→21:03)
[2020-08-29] MEDS: Valproic Acid Oral Soln 250 MG/5 ML UDC PO SCH (21:02)
[2020-08-29] MEDS: Melatonin 3 MG TABLET PO SCH (21:03)
[2020-08-30] MEDS: *HR* Heparin 5,000 UNIT/ML VIAL SQ SCH ×2 (06:00→17:36)
[2020-08-30] MEDS: Artificial Tears SOLN 15 ML BOTTLE BOTH EYES SCH ×3 (08:13→20:39)
[2020-08-30] MEDS: cloZAPine 100 MG TABLET PO SCH ×2 (08:14→20:25)
[2020-08-30] MEDS: Lithium Carbonate 300 MG CAPSULE PO SCH ×2 (08:14→20:25)
[2020-08-30] MEDS: Valproic Acid Oral Soln 250 MG/5 ML UDC PO SCH (20:24)
[2020-08-30] MEDS: Melatonin 3 MG TABLET PO SCH (20:25)
[2020-08-31] MEDS: *HR* Heparin 5,000 UNIT/ML VIAL SQ SCH ×2 (06:34→17:48)
[2020-08-31] MEDS: cloZAPine 100 MG TABLET PO SCH ×2 (09:44→21:30)
[2020-08-31] MEDS: Lithium Carbonate 300 MG CAPSULE PO SCH ×2 (09:45→21:31)
[2020-08-31] MEDS: Artificial Tears SOLN 15 ML BOTTLE BOTH EYES SCH ×2 (10:03→21:32)
[2020-08-31] MEDS: Valproic Acid Oral Soln 250 MG/5 ML UDC PO SCH (21:30)
[2020-08-31] MEDS: Melatonin 3 MG TABLET PO SCH (21:37)
[2020-09-01] MEDS: *HR* Heparin 5,000 UNIT/ML VIAL SQ SCH (06:13)
[2020-09-01] MEDS: Lithium Carbonate 300 MG CAPSULE PO SCH ×2 (08:47→09:06)
[2020-09-01] MEDS: cloZAPine 100 MG TABLET PO SCH ×2 (08:47→09:04)
[2020-09-01] MEDS: Artificial Tears SOLN 15 ML BOTTLE BOTH EYES SCH (09:05)
[2020-09-01 14:22] VITALS: BP 128/79
== END 2020-09-01 16:44 | DRG 389 ==
LOC: EMEROOARM 13:19 → 3ANU 13:19 → SUATTDRO 08-27 14:29
PROVIDERS: ADMIT Pharmacist; ATTEND Internal Medicine

== ENCOUNTER 2022-04-14 17:55 | Inpatient (IN) ==
[2022-04-14] MEDS ORDERED: Isovue-370 500 ML BOTTLE IVP ONE (18:06)
[2022-04-14 18:45] LABS: Basophils % 0.5 %; Hematocrit 39.6 % (37.5-50.1); Hemoglobin 13.5 g/dL (12.9-16.9); Immature Granulocytes % 3.4 % (0-4); Lymphocytes # 1.3 K/mcL (0.6-4.6); Lymphocytes % 15.6 %; Mean Corpuscular HGB Conc 34.1 g/dL (31.6-35.5); Mean Corpuscular Hemoglobin 31.3 pg (28.0-33.3); Mean Corpuscular Volume 91.9 fL (83.0-100.0); Mean Platelet Volume 10.8 fL (9.4-12.4); Monocytes # 0.5 K/mcL (0.0-1.3); Platelet Count 217 K/mcL (140-400); Red Blood Count 4.31 M/mcL (4.19-5.50); Red Cell Distribution Width 14.5 % (11.5-14.5); Segmented Neutrophils % 74.5 %
[2022-04-14 18:52] LABS: INR 1.4; Prothrombin Time 15.2 Seconds (9.4-12.1)
[2022-04-14 18:55] LABS: Activated Partial Thrombo Time 29.6 Seconds (26.0-36.0)
[2022-04-14 19:03] LABS: Alanine Aminotransferase 10 Units/L (7-52); Albumin 3.7 g/dL (3.5-5.7); Albumin/Globulin Ratio 1.4 (1.1-2.2); Alkaline Phosphatase 65 Units/L (34-104); Amylase 15 Units/L (29-103); Aspartate Amino Transferase 11 Units/L (13-39); BUN/Creatinine Ratio 20 (6-26); Bilirubin,Direct 0.1 mg/dL (0.0-0.2); Bilirubin,Indirect 0.3 mg/dL (0.0-1.0); Bilirubin,Total 0.4 mg/dL (0.3-1.0); Blood Urea Nitrogen 18 mg/dL (8-23); Calcium 9.1 mg/dL (8.6-10.3); Carbon Dioxide 24 mEq/L (23-29); Chloride 105 mEq/L (98-107); Globulin 2.7 g/dL (2.4-3.5); Glucose 123 mg/dL (70-105); Lipase 13 Units/L (11-82); Osmolality,Calculated 283 (280-300); Potassium 3.9 mEq/L (3.5-5.1); Sodium 135 mEq/L (136-145); Total Protein 6.4 g/dL (6.4-8.9); eGFR For African Americans > 60 (> 60); eGFR For Non-African Americans > 60 (> 60)
[2022-04-14] MEDS: 0.9 % Sodium Chloride 1,000 ML IVC SCH (22:12)
[2022-04-15] MEDS ORDERED: D5% in Water 1,000 ML IVC PRN (00:31)
[2022-04-15] MEDS ORDERED: *HR* Dextrose 50 % in Water (Syg) 50 ML SYRINGE IVP PRN (00:31)
[2022-04-15] MEDS ORDERED: Chloraseptic Spray 177 ML BOTTLE MM PRN (00:31)
[2022-04-15] MEDS ORDERED: Dextrose 4 GM Chewable Tablets PO PRN ×2 (00:31)
[2022-04-15] MEDS ORDERED: Naloxone 0.4 MG/ML INJ IVP PRN (00:45)
[2022-04-15] MEDS ORDERED: Ondansetron 4 MG/2 ML VIAL IVP PRN (00:45)
[2022-04-15 02:46] LABS: Bilirubin,Urine Negative (Negative); Blood,Urine Negative (Negative); Clarity,Urine Clear (Clear); Color,Urine Light-Yellow (Yellow); Glucose,Urine (UA) Normal (Normal); Ketones,Urine Negative (Negative); Leukocyte Esterase,Urine Negative (Negative); Nitrite,Urine Negative (Negative); Protein,Urine Negative (Neg-Trace); Specific Gravity,Urine 1.025 (1.010-1.025); Urobilinogen,Urine Normal (Normal)
[2022-04-15 03:14] LABS: Hematocrit 40.8 % (37.5-50.1); Hemoglobin 13.7 g/dL (12.9-16.9); Mean Corpuscular HGB Conc 33.6 g/dL (31.6-35.5); Mean Corpuscular Hemoglobin 30.6 pg (28.0-33.3); Mean Corpuscular Volume 91.3 fL (83.0-100.0); Mean Platelet Volume 10.2 fL (9.4-12.4); Platelet Count 227 K/mcL (140-400); Red Blood Count 4.47 M/mcL (4.19-5.50); Red Cell Distribution Width 14.4 % (11.5-14.5); White Blood Count 8.6 K/mcL (4.3-11.1)
[2022-04-15 03:17] LABS: Estimated Average Glucose 100 mg/dl; Hemoglobin A1C 5.1 %
[2022-04-15 03:26] LABS: BUN/Creatinine Ratio 20 (6-26); Blood Urea Nitrogen 17 mg/dL (8-23); Carbon Dioxide 25 mEq/L (23-29); Chloride 107 mEq/L (98-107); Chol/HDL Ratio 3.9 (0-4.9); Cholesterol 117 mg/dL (< 200); Glucose 93 mg/dL (70-105); HDL Cholesterol 30 mg/dL (40-59); LDL Cholesterol,Calculated 62 mg/dL (< 100); Magnesium 2.2 mg/dL (1.6-2.6); Osmolality,Calculated 289 (280-300); Potassium 3.7 mEq/L (3.5-5.1); Sodium 139 mEq/L (136-145); Triglycerides 127 mg/dL (< 150); Valproate 19 mcg/mL (50-100); eGFR For African Americans > 60 (> 60); eGFR For Non-African Americans > 60 (> 60)
[2022-04-15] MEDS: Insulin LISPRO 300 UNITS/3 ML VIAL SUBQ SCH ×3 (05:42→20:15)
[2022-04-15] MEDS: 0.9 % Sodium Chloride 1,000 ML IVC SCH ×3 (05:53→23:56)
[2022-04-15] MEDS: Acetaminophen IV 1,000 MG/100 ML BAG IVPB SCH ×3 (05:53→19:48)
[2022-04-15] MEDS: Valproic Acid INJ 125 MG in 0.9 % Sodium Chloride 100 ML IVPB SCH ×4 (05:54→23:56)
[2022-04-15] MEDS: Pantoprazole 40 MG VIAL IVP SCH (07:39)
[2022-04-15] MEDS: Bisacodyl 10 MG RECTAL SUPPOSITORY RC SCH ×2 (11:22→11:26)
[2022-04-16 05:34] LABS: Hematocrit 43.6 % (37.5-50.1); Hemoglobin 14.3 g/dL (12.9-16.9); Mean Corpuscular HGB Conc 32.8 g/dL (31.6-35.5); Mean Corpuscular Hemoglobin 31.1 pg (28.0-33.3); Mean Corpuscular Volume 94.8 fL (83.0-100.0); Platelet Count 212 K/mcL (140-400); Red Cell Distribution Width 14.7 % (11.5-14.5); White Blood Count 8.8 K/mcL (4.3-11.1)
[2022-04-16] MEDS: Acetaminophen IV 1,000 MG/100 ML BAG IVPB SCH ×2 (05:37)
[2022-04-16] MEDS: Insulin LISPRO 300 UNITS/3 ML VIAL SUBQ SCH ×4 (05:37→17:47)
[2022-04-16] MEDS: Valproic Acid INJ 125 MG in 0.9 % Sodium Chloride 100 ML IVPB SCH (05:46)
[2022-04-16 05:55] LABS: BUN/Creatinine Ratio 14 (6-26); Blood Urea Nitrogen 13 mg/dL (8-23); Calcium 8.5 mg/dL (8.6-10.3); Carbon Dioxide 22 mEq/L (23-29); Chloride 112 mEq/L (98-107); Glucose 64 mg/dL (70-105); Osmolality,Calculated 296 (280-300); Potassium 3.5 mEq/L (3.5-5.1); Sodium 144 mEq/L (136-145); eGFR For African Americans > 60 (> 60); eGFR For Non-African Americans > 60 (> 60)
[2022-04-16] MEDS: Bisacodyl 10 MG RECTAL SUPPOSITORY RC SCH (09:42)
[2022-04-16] MEDS: 0.9 % Sodium Chloride 1,000 ML IVC SCH ×2 (09:46→17:57)
[2022-04-16] MEDS: Pantoprazole 40 MG VIAL IVP SCH (09:51)
[2022-04-16] MEDS: cloZAPine 25 MG TABLET PO SCH (12:03)
[2022-04-16] MEDS: Acetaminophen 325 MG TABLET PO SCH ×2 (12:03→17:57)
[2022-04-16] MEDS: Valproic Acid 250 MG CAPSULE PO SCH (21:14)
[2022-04-16] MEDS: cloZAPine 100 MG TABLET PO SCH (21:14)
[2022-04-16] MEDS: Lithium Carbonate 300 MG CAPSULE PO SCH (21:14)
[2022-04-16] MEDS: Melatonin 3 MG TABLET PO SCH (21:15)
[2022-04-17] MEDS: Acetaminophen 325 MG TABLET PO SCH ×5 (01:06→22:54)
[2022-04-17] MEDS: Insulin LISPRO 300 UNITS/3 ML VIAL SUBQ SCH ×4 (01:29→17:36)
[2022-04-17 01:33] LABS: Basophils % 0.4 %; Eosinophils # 0.2 K/mcL (0.0-0.6); Hematocrit 41.3 % (37.5-50.1); Hemoglobin 13.9 g/dL (12.9-16.9); Immature Granulocytes % 1.7 % (0-4); Lymphocytes # 3.3 K/mcL (0.6-4.6); Mean Corpuscular HGB Conc 33.7 g/dL (31.6-35.5); Mean Corpuscular Volume 92.2 fL (83.0-100.0); Mean Platelet Volume 9.6 fL (9.4-12.4); Monocytes # 0.7 K/mcL (0.0-1.3); Monocytes % 7.3 %; Neutrophils # 5.5 K/mcL (1.6-8.9); Platelet Count 224 K/mcL (140-400); Red Blood Count 4.48 M/mcL (4.19-5.50); Red Cell Distribution Width 14.6 % (11.5-14.5); Segmented Neutrophils % 55.6 %; White Blood Count 9.9 K/mcL (4.3-11.1)
[2022-04-17 01:51] LABS: BUN/Creatinine Ratio 10 (6-26); Blood Urea Nitrogen 8 mg/dL (8-23); Calcium 8.2 mg/dL (8.6-10.3); Carbon Dioxide 26 mEq/L (23-29); Chloride 110 mEq/L (98-107); Glucose 85 mg/dL (70-105); Osmolality,Calculated 290 (280-300); Potassium 3.4 mEq/L (3.5-5.1); Sodium 141 mEq/L (136-145); eGFR For African Americans > 60 (> 60); eGFR For Non-African Americans > 60 (> 60)
[2022-04-17] MEDS: 0.9 % Sodium Chloride 1,000 ML IVC SCH (02:10)
[2022-04-17] MEDS: Levothyroxine 25 MCG TABLET PO SCH (06:00)
[2022-04-17] MEDS: Cholecalciferol (D-3) 1,000 UNIT (25MCG) TABLET PO SCH (08:59)
[2022-04-17] MEDS: cloZAPine 25 MG TABLET PO SCH (08:59)
[2022-04-17] MEDS: Pantoprazole 40 MG VIAL IVP SCH (09:00)
[2022-04-17] MEDS: Lithium Carbonate 300 MG CAPSULE PO SCH ×2 (09:00→21:17)
[2022-04-17] MEDS: Bisacodyl 10 MG RECTAL SUPPOSITORY RC SCH (09:01)
[2022-04-17] MEDS: cloZAPine 100 MG TABLET PO SCH (21:17)
[2022-04-17] MEDS: Melatonin 3 MG TABLET PO SCH (21:17)
[2022-04-17] MEDS: Valproic Acid 250 MG CAPSULE PO SCH (21:18)
[2022-04-18] MEDS: Insulin LISPRO 300 UNITS/3 ML VIAL SUBQ SCH ×3 (00:18→13:34)
[2022-04-18] MEDS: Acetaminophen 325 MG TABLET PO SCH ×2 (06:07→13:34)
[2022-04-18] MEDS: Levothyroxine 25 MCG TABLET PO SCH (06:07)
[2022-04-18 06:51] LABS: Basophils # 0.1 K/mcL (0.0-0.2); Basophils % 0.5 %; Eosinophils # 0.2 K/mcL (0.0-0.6); Eosinophils % 1.5 %; Hematocrit 44.4 % (37.5-50.1); Hemoglobin 14.8 g/dL (12.9-16.9); Lymphocytes # 2.7 K/mcL (0.6-4.6); Lymphocytes % 24.7 %; Mean Corpuscular HGB Conc 33.3 g/dL (31.6-35.5); Mean Corpuscular Hemoglobin 30.7 pg (28.0-33.3); Mean Corpuscular Volume 92.1 fL (83.0-100.0); Mean Platelet Volume 10.4 fL (9.4-12.4); Monocytes # 0.5 K/mcL (0.0-1.3); Monocytes % 4.9 %; Neutrophils # 7.5 K/mcL (1.6-8.9); Platelet Count 183 K/mcL (140-400); Red Blood Count 4.82 M/mcL (4.19-5.50); Red Cell Distribution Width 14.9 % (11.5-14.5); Segmented Neutrophils % 67.4 %; White Blood Count 11.1 K/mcL (4.3-11.1)
[2022-04-18] MEDS: Lithium Carbonate 300 MG CAPSULE PO SCH (09:14)
[2022-04-18] MEDS: Bisacodyl 10 MG RECTAL SUPPOSITORY RC SCH (09:14)
[2022-04-18] MEDS: cloZAPine 25 MG TABLET PO SCH (09:14)
[2022-04-18] MEDS: Cholecalciferol (D-3) 1,000 UNIT (25MCG) TABLET PO SCH (09:14)
[2022-04-18 11:03] VITALS: BP 123/87; PULSE 72; TEMP 98; O2SAT 95
[2022-04-18 11:57] LABS: Influenza A PCR Negative (Negative); Influenza B PCR Negative (Negative); Resp. Syncytial Virus PCR Negative (Negative); SARS-CoV-2 by PCR (In House) Negative (Negative)
== END 2022-04-18 13:51 | DRG 389 ==
LOC: EMEROOARM 17:55 → 3ANU 17:55 → SUATTDRO 21:32 → 3ANU 22:27
PROVIDERS: ADMIT Internal Medicine; ATTEND Family Medicine